=== PATIENT | female | born 1985 | race Caucasian/White ===

== ENCOUNTER 2017-03-05 13:41 | Inpatient (IN) | payer MEDICAID, OTHER ==
[~2017-03-05] VITALS: Ht 167.6 cm; Wt 103.6 kg
[~2017-03-05 13:41] MED LIST: ACET-2116 PO; IBUP-1547 PO
[2017-03-05] MEDS ORDERED: QUEtiapine FUMARATE 100 MG TABLET PO PRN (17:00)
[2017-03-05] MEDS ORDERED: ACET-2247 PO (17:06)
[2017-03-05 18:20] VITALS: BP 136/77
[2017-03-05] MEDS ORDERED: PNEUMOCOCCAL VACCINE POLYVALENT 0.5 ML VIAL [PPSV23] IM ONE (19:15)
[2017-03-05] MEDS: LORazepam 2 MG TABLET PO PRN (19:45)
[2017-03-05] MEDS ORDERED: ACETAMINOPHEN 325 MG TABLET PO PRN (23:00)
[2017-03-06] VITALS: BP 134/78
[2017-03-06] MEDS: ZOLPIDEM TARTRATE 10 MG TABLET PO PRN ×2 (00:05→21:25)
[2017-03-06] MEDS: LORazepam 2 MG TABLET PO PRN ×3 (00:05→21:25)
[2017-03-06 06:30] VITALS: BP 139/89
[2017-03-06] MEDS ORDERED: HydrOXYzine PAMOATE 50 MG CAPSULE PO PRN (13:30)
[2017-03-06] MEDS ORDERED: MAGNESIUM HYDROXIDE SUSPENSION 30 ML UDCUP PO PRN (13:30)
[2017-03-06] MEDS ORDERED: GuaiFENesin/D-METHORPHAN [SUGAR-FREE] 200-20MG/10 ML SYRUP UDCUP PO PRN (13:30)
[2017-03-06] MEDS ORDERED: PROMETHAZINE HCL 25 MG TABLET PO PRN (13:30)
[2017-03-06] MEDS ORDERED: MAG HYDROX/AL HYDROX/SIMETH ES 30 ML SUSPENSION UDCUP PO PRN (13:30)
[2017-03-06] MEDS ORDERED: ACETAMINOPHEN 325 MG TABLET PO PRN (13:30)
[2017-03-06] MEDS ORDERED: LOPERAMIDE HCL 2 MG CAPSULE PO PRN (13:30)
[2017-03-06] MEDS ORDERED: TUBERCULIN, PURIFIED PROTEIN DERIVATIVE 5 TU/0.1 ML SYG ID ONE (13:30)
[2017-03-06 16:07] VITALS: BP 130/75
[2017-03-06] MEDS: LITHIUM CARBONATE 300 MG ER TABLET PO SCH (16:43)
[2017-03-06] MEDS: THIAMINE HCL 100 MG TABLET PO SCH (16:43)
[2017-03-07 06:59] VITALS: BP 122/77
[2017-03-07] MEDS: FOLIC ACID 1 MG TABLET PO SCH (08:13)
[2017-03-07] MEDS: THIAMINE HCL 100 MG TABLET PO SCH ×2 (08:13→16:30)
[2017-03-07] MEDS: MULTIVITAMINS WITH MINERALS, THERAPEUTIC TABLET PO SCH (08:13)
[2017-03-07] MEDS: LITHIUM CARBONATE 300 MG ER TABLET PO SCH ×2 (08:14→16:30)
[2017-03-07] MEDS ORDERED: ARIPiprazole 2 MG TABLET PO SCH (09:00)
[2017-03-07] MEDS: LORazepam 2 MG TABLET PO PRN ×3 (10:05→20:47)
[2017-03-07 14:11] VITALS: BP 112/66
[2017-03-07] MEDS: TraMADol HCL 50 MG TABLET PO PRN ×2 (14:11→20:47)
[2017-03-07 16:00] VITALS: BP 123/74
[2017-03-07] MEDS ORDERED: ARIP2 PO (16:51)
[2017-03-07] MEDS ORDERED: LITH300CRT PO (16:51)
[2017-03-07] MEDS: ZOLPIDEM TARTRATE 10 MG TABLET PO PRN (21:53)
[2017-03-08 02:45] VITALS: BP 117/75
[2017-03-08] MEDS: TraMADol HCL 50 MG TABLET PO PRN (02:49)
[2017-03-08] MEDS: LORazepam 2 MG TABLET PO PRN (05:49)
[2017-03-08 08:18] VITALS: BP 112/65
[2017-03-08] MEDS: LITHIUM CARBONATE 300 MG ER TABLET PO SCH (08:47)
[2017-03-08] MEDS: THIAMINE HCL 100 MG TABLET PO SCH (08:47)
[2017-03-08] MEDS: MULTIVITAMINS WITH MINERALS, THERAPEUTIC TABLET PO SCH (08:47)
[2017-03-08] MEDS: FOLIC ACID 1 MG TABLET PO SCH (08:47)
[2017-03-08] MEDS ORDERED: ARIPiprazole 5 MG TABLET PO SCH (09:00)
[2017-03-08] MEDS ORDERED: ARIP5TAB9 PO ×2 (10:06→10:08)
[2017-03-08] MEDS ORDERED: LITH300CRT PO (10:06)
== END 2017-03-08 12:57 | disposition home or self-care (01) | DRG 750 ==
LOC: EEVIPCON 13:42 → EMS 13:42 → B3A 16:56
PROVIDERS: ADMIT Psychiatry & Neurology Psychiatry; ATTEND Psychiatry & Neurology Psychiatry
PROC: GZHZZZZ Group Psychotherapy (ICD-10-PCS; principal; 2017-03-05)
PROC: 3E0234Z Introduction of Serum, Toxoid and Vaccine into Muscle, Percutaneous Approach (ICD-10-PCS; 2017-03-05)
PROC: GZ51ZZZ Individual Psychotherapy, Behavioral (ICD-10-PCS; 2017-03-05)
DX: F25.0 Schizoaffective disorder, bipolar type (principal); R45.851 Suicidal ideations; Z78.1 Physical restraint status; E66.9 Obesity, unspecified; J45.909 Unspecified asthma, uncomplicated; Z68.36 Body mass index [BMI] 36.0-36.9, adult; Z98.84 Bariatric surgery status; Z90.49 Acquired absence of other specified parts of digestive tract; Z79.1 Long term (current) use of non-steroidal anti-inflammatories (NSAID); Z91.19 Patient's noncompliance with other medical treatment and regimen; Z79.899 Other long term (current) drug therapy; Z91.010 Allergy to peanuts; Z81.8 Family history of other mental and behavioral disorders; Z28.21 Immunization not carried out because of patient refusal
CPT/HCPCS: 99285

== ENCOUNTER 2017-06-26 17:18 | Emergency (ER) | payer MEDICAID, OTHER ==
[~2017-06-26] VITALS: Ht 170.2 cm; Wt 111.4 kg
[~2017-06-26 17:18] MED LIST changes: -ACET-2116 PO; +ARIP2 PO; +ARIP5TAB9 PO; -IBUP-1547 PO; +LITH300CRT PO
[2017-06-26] MEDS ORDERED: ARIP400S3 IM (17:34)
[2017-06-26] MEDS ORDERED: LITH600 PO (17:34)
[2017-06-26 18:08] LABS: BASOPHILS % (AUTO) 0.5 % (0.0-2.0); HEMATOCRIT 34.6 % (36-46); HEMOGLOBIN 11.4 g/dL (12.0-16.0); LYMPHOCYTES # (AUTO) 1.8 K/uL (1.0-4.8); LYMPHOCYTES % (AUTO) 25.2 % (22.0-44.0); MEAN CORPUSCULAR HEMOGLOBIN 25.8 pg (26.0-34.0); MEAN CORPUSCULAR HGB CONC 32.9 G/dL (31.0-37.0); MEAN CORPUSCULAR VOLUME 78 fL (80-100); MONOCYTES # (AUTO) 0.5 K/uL (0.1-1.0); MONOCYTES % (AUTO) 7.1 % (2.0-9.0); NEUTROPHILS # (AUTO) 4.7 K/uL (1.8-7.7); NEUTROPHILS % (AUTO) 65.2 % (40.0-70.0); PLATELET COUNT (AUTO) 281 K/uL (150-450); RED BLOOD CELL COUNT(AUTO) 4.41 MIL/uL (4.00-5.20); RED CELL DISTRIBUTION WIDTH 17.2 % (11.5-14.5); WHITE BLOOD COUNT (AUTO) 7.2 K/uL (4.5-11.0)
[2017-06-26 18:26] LABS: LITHIUM 0.61 mmol/L (0.60-1.20)
[2017-06-26 18:29] LABS: ANION GAP 8 mmol/L (8-16); CALCIUM, TOTAL 9.3 mg/dL (8.8-10.5); CARBON DIOXIDE 27 mmol/L (22-29); CHLORIDE 105 mmol/L (98-107); CREATININE 0.67 mg/dL (0.60-1.30); GLOMERULAR FILTR. RATE CALC > 60 mL/min (>60); POTASSIUM 4.1 mmol/L (3.5-5.1); SODIUM SERUM 140 mmol/L (136-145); UREA NITROGEN, BLOOD 10 mg/dL (7-18)
[2017-06-26 18:32] LABS: ALANINE AMINOTRANSFERASE 33 U/L (12-78); ALBUMIN 3.5 g/dL (3.4-5.0); ASPARTATE AMINOTRANSFERASE 22 U/L (15-37); BILIRUBIN,TOTAL 0.4 mg/dL (0.1-1.0); TOTAL PROTEIN, SERUM 7.6 g/dL (6.4-8.2)
[2017-06-26 18:50] LABS: RBC MORPHOLOGY COMMENT ABNORMAL RBC MORPH
[2017-06-26 20:57] VITALS: BP 118/71
[2017-06-26] MEDS ORDERED: LORazepam 2 MG TABLET PO ONE (21:00)
== END 2017-06-26 21:06 | disposition home or self-care (01) ==
LOC: EMS 17:19
DX: S61.512A Laceration without foreign body of left wrist, initial encounter (principal); S61.511A Laceration without foreign body of right wrist, initial encounter; J45.909 Unspecified asthma, uncomplicated; Z91.010 Allergy to peanuts; X78.8XXA Intentional self-harm by other sharp object, initial encounter; Y93.89 Activity, other specified; Y92.89 Other specified places as the place of occurrence of the external cause; Y99.8 Other external cause status
CPT/HCPCS: 36415; 80053; 80178; 80307; 84703; 85025; 99285; G0480

== ENCOUNTER 2017-06-27 18:06 | Inpatient (IN) | payer MEDICAID, OTHER ==
[~2017-06-27] VITALS: Ht 170.2 cm; Wt 111.1 kg
[~2017-06-27 18:06] MED LIST changes: -ARIP2 PO; +ARIP400S3 IM; -ARIP5TAB9 PO; -LITH300CRT PO; +LITH600 PO
[2017-06-27] MEDS ORDERED: LORazepam 2 MG TABLET PO ONE (19:30)
[2017-06-27 20:38] VITALS: BP 113/68
[2017-06-27 21:57] LABS: ALANINE AMINOTRANSFERASE 32 U/L (12-78); ALBUMIN 3.2 g/dL (3.4-5.0); ANION GAP 13 mmol/L (8-16); ASPARTATE AMINOTRANSFERASE 20 U/L (15-37); BILIRUBIN,TOTAL 0.3 mg/dL (0.1-1.0); CALCIUM, TOTAL 8.9 mg/dL (8.8-10.5); CARBON DIOXIDE 23 mmol/L (22-29); CHLORIDE 105 mmol/L (98-107); CHOL/HDL RATIO 3.2 (3.9-5.7); CREATININE 0.84 mg/dL (0.60-1.30); GLOMERULAR FILTR. RATE CALC > 60 mL/min (>60); POTASSIUM 3.7 mmol/L (3.5-5.1); SODIUM SERUM 141 mmol/L (136-145); TOTAL PROTEIN, SERUM 6.8 g/dL (6.4-8.2); UREA NITROGEN, BLOOD 10 mg/dL (7-18)
[2017-06-27 22:09] LABS: LITHIUM 0.54 mmol/L (0.60-1.20)
[2017-06-28 00:01] VITALS: BP 105/60
[2017-06-28] MEDS: ZOLPIDEM TARTRATE 10 MG TABLET PO PRN (00:01)
[2017-06-28] MEDS: LORazepam 2 MG TABLET PO PRN ×3 (06:12→21:02)
[2017-06-28 08:22] VITALS: BP 106/69
[2017-06-28] MEDS ORDERED: ONDANSETRON HCL 4 MG TABLET PO PRN (09:00)
[2017-06-28] MEDS ORDERED: LOPERAMIDE HCL 2 MG CAPSULE PO PRN (09:00)
[2017-06-28] MEDS ORDERED: BACITRACIN 28.4 GM OINTMENT TP PRN (09:00)
[2017-06-28] MEDS ORDERED: MAGNESIUM HYDROXIDE SUSPENSION 30 ML UDCUP PO PRN (09:00)
[2017-06-28] MEDS ORDERED: ACETAMINOPHEN 325 MG TABLET PO PRN (09:00)
[2017-06-28] MEDS ORDERED: CloNIDine HCL 0.1 MG TABLET PO PRN (09:00)
[2017-06-28] MEDS ORDERED: ALBUTEROL SULFATE HFA 90 MCG/PUFF 8 GM INHALER IH PRN (09:00)
[2017-06-28] MEDS ORDERED: MAG HYDROX/AL HYDROX/SIMETH ES 30 ML SUSPENSION UDCUP PO PRN (09:00)
[2017-06-28] MEDS ORDERED: PETROLATUM,WHITE 71 GM JELLY TP PRN (09:00)
[2017-06-28] MEDS ORDERED: IBUPROFEN 600 MG TABLET PO PRN (09:00)
[2017-06-28] MEDS: HALOPERIDOL 5 MG TABLET PO PRN (10:45)
[2017-06-28] MEDS ORDERED: PNEUMOCOCCAL VACCINE POLYVALENT 0.5 ML VIAL [PPSV23] IM ONE (12:00)
[2017-06-28 16:29] VITALS: BP 101/59
[2017-06-28] MEDS: LITHIUM CARBONATE 300 MG ER TABLET PO SCH (18:12)
[2017-06-28 21:02] VITALS: BP 112/69
[2017-06-29 07:02] LABS: HEMOGLOBIN A1C 5.3 % (4.5-6.2)
[2017-06-29 08:43] VITALS: BP 105/56
[2017-06-29] MEDS: LITHIUM CARBONATE 300 MG ER TABLET PO SCH ×2 (09:12→17:08)
[2017-06-29] MEDS: ARIPiprazole 5 MG TABLET PO SCH (09:12)
[2017-06-29] MEDS: LORazepam 2 MG TABLET PO PRN ×2 (12:34→21:45)
[2017-06-29] MEDS: HALOPERIDOL 5 MG TABLET PO PRN (12:34)
[2017-06-29] MEDS ORDERED: SERT50TA12 PO (15:18)
[2017-06-29] MEDS ORDERED: PRAZ2 PO (15:18)
[2017-06-29] MEDS ORDERED: BENZ1TAB10 PO (15:18)
[2017-06-29 16:00] VITALS: BP 102/61
[2017-06-30] MEDS: ZOLPIDEM TARTRATE 10 MG TABLET PO PRN ×2 (02:34→20:02)
[2017-06-30 08:27] VITALS: BP 118/71
[2017-06-30] MEDS: LITHIUM CARBONATE 300 MG ER TABLET PO SCH ×2 (10:10→17:39)
[2017-06-30] MEDS: ARIPiprazole 5 MG TABLET PO SCH (10:10)
[2017-06-30] MEDS: SERTRALINE HCL 50 MG TABLET PO SCH (10:10)
[2017-06-30] MEDS: LEVOTHYROXINE SODIUM 100 MCG TABLET PO SCH (11:56)
[2017-06-30] MEDS: LORazepam 2 MG TABLET PO PRN (14:19)
[2017-06-30] MEDS: HALOPERIDOL 5 MG TABLET PO PRN (16:08)
[2017-06-30 16:55] VITALS: BP 105/60
[2017-07-01 02:45] VITALS: BP 101/64
[2017-07-01] MEDS: LEVOTHYROXINE SODIUM 100 MCG TABLET PO SCH (06:49)
[2017-07-01] MEDS: ARIPiprazole 5 MG TABLET PO SCH (08:21)
[2017-07-01] MEDS: SERTRALINE HCL 50 MG TABLET PO SCH (08:21)
[2017-07-01] MEDS: LITHIUM CARBONATE 300 MG ER TABLET PO SCH (08:22)
[2017-07-01] MEDS ORDERED: CYANOCOBALAMIN 1,000 MCG/ML VIAL IM SCH (09:00)
[2017-07-01] MEDS ORDERED: CYANOCOBALAMIN 500 MCG TABLET PO SCH (09:00)
[2017-07-01] MEDS ORDERED: LEVO100 PO (09:16)
[2017-07-01] MEDS ORDERED: CYAN100010 PO (09:16)
[2017-07-01] MEDS ORDERED: ARIP5TAB9 PO (09:17)
[2017-07-01 09:30] VITALS: BP 116/66
== END 2017-07-01 10:30 | disposition home or self-care (01) | DRG 750 ==
LOC: EMS 18:07 → 3EI 19:36 → 3EC 20:11
PROVIDERS: ADMIT Psychiatry & Neurology Psychiatry; ATTEND Psychiatry & Neurology Psychiatry
PROC: 3E0234Z Introduction of Serum, Toxoid and Vaccine into Muscle, Percutaneous Approach (ICD-10-PCS; principal; 2017-06-28)
DX: F25.9 Schizoaffective disorder, unspecified (principal); R45.851 Suicidal ideations; E03.9 Hypothyroidism, unspecified; E66.9 Obesity, unspecified; F41.9 Anxiety disorder, unspecified; J45.909 Unspecified asthma, uncomplicated; G47.00 Insomnia, unspecified; R73.9 Hyperglycemia, unspecified; Z90.49 Acquired absence of other specified parts of digestive tract; Z98.84 Bariatric surgery status; Z72.89 Other problems related to lifestyle; Z71.41 Alcohol abuse counseling and surveillance of alcoholic; Z91.010 Allergy to peanuts; Z23 Encounter for immunization; Z68.38 Body mass index [BMI] 38.0-38.9, adult
CPT/HCPCS: 80307; 82306; 83036; 83540; 83550; 84443; 90471; 99285; G0480; J3420

== ENCOUNTER 2017-11-23 15:57 | Inpatient (IN) | payer MEDICAID ==
[~2017-11-23] VITALS: Ht 167.6 cm; Wt 117.4 kg
[~2017-11-23 15:57] MED LIST changes: -ARIP400S3 IM; +ARIP5TAB8 PO; +CYAN100010 PO; +LEVO100 PO; +SERT50TA12 PO
[2017-11-23 16:18] VITALS: BP 112/67
[2017-11-23] MEDS ORDERED: ARIP400S3 IM (16:55)
[2017-11-23] MEDS ORDERED: PRAZ2 PO (16:57)
[2017-11-23] MEDS ORDERED: LITH300C3 PO (16:57)
[2017-11-23] MEDS ORDERED: SERT50TA12 PO (16:57)
[2017-11-23] MEDS ORDERED: BENZ1TAB10 PO (16:57)
[2017-11-23 17:09] VITALS: BP 111/73
[2017-11-23] MEDS: HALOPERIDOL 5 MG TABLET PO PRN (22:29)
[2017-11-24 07:42] LABS: BASOPHILS % (AUTO) 0.5 % (0.0-2.0); EOSINOPHILS % (AUTO) 2.7 % (1.0-6.0); HEMATOCRIT 30.8 % (36-46); HEMOGLOBIN 10.1 g/dL (12.0-16.0); LYMPHOCYTES # (AUTO) 2.5 K/uL (1.0-4.8); LYMPHOCYTES % (AUTO) 34.1 % (22.0-44.0); MEAN CORPUSCULAR HEMOGLOBIN 24.8 pg (26.0-34.0); MEAN CORPUSCULAR HGB CONC 32.6 G/dL (31.0-37.0); MEAN CORPUSCULAR VOLUME 76 fL (80-100); MONOCYTES # (AUTO) 0.6 K/uL (0.1-1.0); MONOCYTES % (AUTO) 8.3 % (2.0-9.0); NEUTROPHILS % (AUTO) 54.4 % (40.0-70.0); PLATELET COUNT (AUTO) 318 K/uL (150-450); RED BLOOD CELL COUNT(AUTO) 4.05 MIL/uL (4.00-5.20); RED CELL DISTRIBUTION WIDTH 13.7 % (11.5-14.5)
[2017-11-24] MEDS ORDERED: CloNIDine HCL 0.1 MG TABLET PO PRN (08:00)
[2017-11-24] MEDS ORDERED: PETROLATUM,WHITE 71 GM JELLY TP PRN (08:00)
[2017-11-24] MEDS ORDERED: ONDANSETRON HCL 4 MG TABLET PO PRN (08:00)
[2017-11-24] MEDS ORDERED: MAG HYDROX/AL HYDROX/SIMETH ES 30 ML SUSPENSION UDCUP PO PRN (08:00)
[2017-11-24] MEDS ORDERED: ACETAMINOPHEN 325 MG TABLET PO PRN (08:00)
[2017-11-24] MEDS ORDERED: ALBUTEROL SULFATE HFA 90 MCG/PUFF 8 GM INHALER IH PRN (08:00)
[2017-11-24] MEDS ORDERED: IBUPROFEN 600 MG TABLET PO PRN (08:00)
[2017-11-24] MEDS ORDERED: LOPERAMIDE HCL 2 MG CAPSULE PO PRN (08:00)
[2017-11-24] MEDS ORDERED: BACITRACIN 28.4 GM OINTMENT TP PRN (08:00)
[2017-11-24] MEDS ORDERED: MAGNESIUM HYDROXIDE SUSPENSION 30 ML UDCUP PO PRN (08:00)
[2017-11-24 08:02] LABS: HEMOGLOBIN A1C 5.9 % (4.5-6.2)
[2017-11-24 08:17] LABS: ALANINE AMINOTRANSFERASE 36 U/L (12-78); ALBUMIN 3.2 g/dL (3.4-5.0); ALKALINE PHOSPHATASE 92 U/L (46-116); ANION GAP 10 mmol/L (8-16); ASPARTATE AMINOTRANSFERASE 19 U/L (15-37); BILIRUBIN,TOTAL 0.6 mg/dL (0.1-1.0); CALCIUM, TOTAL 8.5 mg/dL (8.8-10.5); CARBON DIOXIDE 25 mmol/L (22-29); CHLORIDE 103 mmol/L (98-107); CHOL/HDL RATIO 2.9 (3.9-5.7); CHOLESTEROL 141 mg/dL (131-200); CREATININE 0.69 mg/dL (0.60-1.30); GLOMERULAR FILTR. RATE CALC > 60 mL/min (>60); GLUCOSE,RANDOM 85 mg/dL (70-110); HCG,QUANTITATIVE < 1 mIU/mL (0-6); HDL CHOLESTEROL 49 mg/dL (40-60); LDL CHOL (CALC.) 68 mg/dL (0-130); SODIUM SERUM 138 mmol/L (136-145); THYROID STIMULATING HORMONE 23.41 uIU/mL (0.36-3.74); TOTAL PROTEIN, SERUM 6.6 g/dL (6.4-8.2); TRIGLYCERIDES 122 mg/dL (15-150); UREA NITROGEN, BLOOD 10 mg/dL (7-18)
[2017-11-24 09:12] LABS: PLATELET MORPHOLOGY COMMENT NORMAL
[2017-11-24] MEDS ORDERED: LEVOTHYROXINE SODIUM 50 MCG TABLET PO SCH (10:00)
[2017-11-24] MEDS ORDERED: FLUTICASONE PROPIONATE 50 MCG/SPRAY 16 GM NASAL SPRAY NASAL PRN (10:45)
[2017-11-24 16:45] VITALS: BP 107/61
[2017-11-24] MEDS: LORazepam 2 MG TABLET PO PRN ×2 (16:46→22:52)
[2017-11-24] MEDS: FERROUS SULFATE 325 MG EC TABLET PO SCH (16:52)
[2017-11-24] MEDS: HALOPERIDOL 5 MG TABLET PO PRN (18:06)
[2017-11-24] MEDS: LITHIUM CARBONATE 600 MG CAPSULE PO SCH (20:31)
[2017-11-24] MEDS: BENZTROPINE MESYLATE 1 MG TABLET PO SCH (20:31)
[2017-11-24] MEDS: SERTRALINE HCL 100 MG TABLET PO SCH (20:31)
[2017-11-24] MEDS: ZOLPIDEM TARTRATE 10 MG TABLET PO PRN (21:03)
[2017-11-25 04:32] VITALS: BP 137/72
[2017-11-25] MEDS: LORazepam 2 MG TABLET PO PRN (04:35)
[2017-11-25] MEDS: HALOPERIDOL 5 MG TABLET PO PRN (04:35)
[2017-11-25] MEDS: LEVOTHYROXINE SODIUM 100 MCG TABLET PO SCH (06:11)
[2017-11-25] MEDS: FERROUS SULFATE 325 MG EC TABLET PO SCH ×2 (06:36→16:35)
[2017-11-25 08:45] VITALS: BP 106/60
[2017-11-25 16:37] VITALS: BP 102/60
[2017-11-25] MEDS: SERTRALINE HCL 100 MG TABLET PO SCH (20:05)
[2017-11-25] MEDS: LITHIUM CARBONATE 600 MG CAPSULE PO SCH (20:06)
[2017-11-25] MEDS: BENZTROPINE MESYLATE 1 MG TABLET PO SCH (20:06)
[2017-11-25] MEDS: ZOLPIDEM TARTRATE 10 MG TABLET PO PRN (21:04)
[2017-11-26] MEDS: LEVOTHYROXINE SODIUM 100 MCG TABLET PO SCH (06:40)
[2017-11-26] MEDS: FERROUS SULFATE 325 MG EC TABLET PO SCH ×2 (06:40→16:53)
[2017-11-26] MEDS: LORazepam 2 MG TABLET PO PRN ×2 (12:08→20:56)
[2017-11-26 16:21] VITALS: BP 105/65
[2017-11-26] MEDS: LITHIUM CARBONATE 600 MG CAPSULE PO SCH (20:35)
[2017-11-26] MEDS: SERTRALINE HCL 100 MG TABLET PO SCH (20:35)
[2017-11-26] MEDS: BENZTROPINE MESYLATE 1 MG TABLET PO SCH (20:35)
[2017-11-27 01:03] VITALS: BP 128/63
[2017-11-27] MEDS: ZOLPIDEM TARTRATE 10 MG TABLET PO PRN (01:04)
[2017-11-27] MEDS: LEVOTHYROXINE SODIUM 100 MCG TABLET PO SCH (06:31)
[2017-11-27] MEDS: FERROUS SULFATE 325 MG EC TABLET PO SCH ×2 (06:31→16:19)
[2017-11-27 08:26] VITALS: BP 103/54
[2017-11-27 16:42] VITALS: BP 105/67
[2017-11-27] MEDS: LORazepam 2 MG TABLET PO PRN (20:32)
[2017-11-27] MEDS: HALOPERIDOL 5 MG TABLET PO PRN (20:32)
[2017-11-27] MEDS: LITHIUM CARBONATE 600 MG CAPSULE PO SCH (21:16)
[2017-11-27] MEDS: BENZTROPINE MESYLATE 1 MG TABLET PO SCH (21:16)
[2017-11-27] MEDS: SERTRALINE HCL 100 MG TABLET PO SCH (21:16)
[2017-11-28] MEDS: LEVOTHYROXINE SODIUM 100 MCG TABLET PO SCH (06:29)
[2017-11-28] MEDS: FERROUS SULFATE 325 MG EC TABLET PO SCH (06:29)
[2017-11-28 07:20] VITALS: BP 112/68
[2017-11-28 09:00] VITALS: BP 108/66
[2017-11-28] MEDS ORDERED: FERR-89 PO (15:28)
[2017-11-28] MEDS ORDERED: LEVO50TA11 PO (15:28)
== END 2017-11-28 16:15 | disposition home or self-care (01) | DRG 750 ==
LOC: B3A 16:24
PROVIDERS: ADMIT Psychiatry & Neurology Psychiatry; ATTEND Psychiatry & Neurology Psychiatry
DX: F25.1 Schizoaffective disorder, depressive type (principal); R45.851 Suicidal ideations; Z68.41 Body mass index [BMI] 40.0-44.9, adult; E66.01 Morbid (severe) obesity due to excess calories; E03.9 Hypothyroidism, unspecified; D50.9 Iron deficiency anemia, unspecified; F23 Brief psychotic disorder; F25.9 Schizoaffective disorder, unspecified; F41.9 Anxiety disorder, unspecified; G47.00 Insomnia, unspecified; J30.9 Allergic rhinitis, unspecified; K59.00 Constipation, unspecified; Z98.84 Bariatric surgery status; Z90.49 Acquired absence of other specified parts of digestive tract; Z91.010 Allergy to peanuts
CPT/HCPCS: 83036; 84439; 84443; 87081

== ENCOUNTER 2017-11-30 15:33 | Inpatient (IN) | payer MEDICAID, OTHER ==
[~2017-11-30] VITALS: Ht 170.2 cm; Wt 117.8 kg
[~2017-11-30 15:33] MED LIST changes: -ARIP5TAB8 PO; +BENZ1TAB10 PO; -CYAN100010 PO; +FERR-89 PO; -LEVO100 PO; +LEVO50TA11 PO; +LITH300C3 PO; -LITH600 PO
[2017-11-30] MEDS ORDERED: PRAZ1 PO (15:46)
[2017-11-30] MEDS ORDERED: ARIP2 PO (15:46)
[2017-11-30 16:57] LABS: ANION GAP 6 mmol/L (8-16); CALCIUM, TOTAL 8.8 mg/dL (8.8-10.5); CARBON DIOXIDE 27 mmol/L (22-29); CHLORIDE 103 mmol/L (98-107); CREATININE 0.62 mg/dL (0.60-1.30); GLOMERULAR FILTR. RATE CALC > 60 mL/min (>60); GLUCOSE,RANDOM 102 mg/dL (70-110); POTASSIUM 3.7 mmol/L (3.5-5.1); SODIUM SERUM 136 mmol/L (136-145); UREA NITROGEN, BLOOD 8 mg/dL (7-18)
[2017-11-30 17:02] LABS: ALANINE AMINOTRANSFERASE 45 U/L (12-78); ALBUMIN 3.5 g/dL (3.4-5.0); ALKALINE PHOSPHATASE 89 U/L (46-116); ASPARTATE AMINOTRANSFERASE 34 U/L (15-37); BILIRUBIN,TOTAL 0.5 mg/dL (0.1-1.0); TOTAL PROTEIN, SERUM 7.4 g/dL (6.4-8.2)
[2017-11-30 17:23] LABS: BASOPHILS % (AUTO) 0.6 % (0.0-2.0); EOSINOPHILS % (AUTO) 1.6 % (1.0-6.0); HEMATOCRIT 32.7 % (36-46); HEMOGLOBIN 10.7 g/dL (12.0-16.0); LYMPHOCYTES # (AUTO) 1.6 K/uL (1.0-4.8); LYMPHOCYTES % (AUTO) 20.9 % (22.0-44.0); MEAN CORPUSCULAR HEMOGLOBIN 25.2 pg (26.0-34.0); MEAN CORPUSCULAR HGB CONC 32.6 G/dL (31.0-37.0); MEAN CORPUSCULAR VOLUME 77 fL (80-100); MONOCYTES # (AUTO) 0.5 K/uL (0.1-1.0); MONOCYTES % (AUTO) 6.5 % (2.0-9.0); NEUTROPHILS # (AUTO) 5.2 K/uL (1.8-7.7); NEUTROPHILS % (AUTO) 70.4 % (40.0-70.0); PLATELET COUNT (AUTO) 290 K/uL (150-450); RED BLOOD CELL COUNT(AUTO) 4.24 MIL/uL (4.00-5.20); RED CELL DISTRIBUTION WIDTH 14.1 % (11.5-14.5)
[2017-11-30 19:24] LABS: AMPHET/METH SCREEN,URINE NEGATIVE (NEGATIVE); BARBITURATE SCREEN, URINE NEGATIVE (NEGATIVE); BENZODIAZEPINES SCREEN,URINE NEGATIVE (NEGATIVE); CANNABINOID SCREEN,URINE NEGATIVE (NEGATIVE); COCAINE SCREEN,URINE NEGATIVE (NEGATIVE); METHADONE SCREEN, URINE NEGATIVE (NEGATIVE); OPIATE SCREEN,URINE NEGATIVE (NEGATIVE)
[2017-11-30 19:29] LABS: PHENCYCLIDINE SCREEN,URINE NEGATIVE (NEGATIVE)
[2017-11-30] MEDS ORDERED: LITH600 PO (19:47)
[2017-11-30] MEDS ORDERED: LEVO100 PO (19:47)
[2017-11-30] MEDS ORDERED: SERT100T12 PO (19:47)
[2017-11-30] MEDS: LORazepam 2 MG TABLET PO PRN (19:58)
[2017-11-30] MEDS: HALOPERIDOL 5 MG TABLET PO PRN (19:58)
[2017-11-30] MEDS ORDERED: SERTRALINE HCL 100 MG TABLET PO SCH (21:00)
[2017-12-01 00:08] VITALS: BP 104/66
[2017-12-01] MEDS ORDERED: ALBUTEROL SULFATE HFA 90 MCG/PUFF 8 GM INHALER IH PRN (07:00)
[2017-12-01] MEDS ORDERED: ACETAMINOPHEN 325 MG TABLET PO PRN (07:00)
[2017-12-01] MEDS ORDERED: ONDANSETRON HCL 4 MG TABLET PO PRN (07:00)
[2017-12-01] MEDS ORDERED: MAG HYDROX/AL HYDROX/SIMETH ES 30 ML SUSPENSION UDCUP PO PRN (07:00)
[2017-12-01] MEDS ORDERED: BACITRACIN 28.4 GM OINTMENT TP PRN (07:00)
[2017-12-01] MEDS ORDERED: IBUPROFEN 600 MG TABLET PO PRN (07:00)
[2017-12-01] MEDS ORDERED: MAGNESIUM HYDROXIDE SUSPENSION 30 ML UDCUP PO PRN (07:00)
[2017-12-01] MEDS ORDERED: BENZOCAINE/MENTHOL LOZENGE [8 LOZENGES/PACKET] MM PRN (07:00)
[2017-12-01] MEDS ORDERED: PETROLATUM,WHITE 71 GM JELLY TP PRN (07:00)
[2017-12-01] MEDS ORDERED: CloNIDine HCL 0.1 MG TABLET PO PRN (07:00)
[2017-12-01] MEDS: LEVOTHYROXINE SODIUM 100 MCG TABLET PO SCH (07:10)
[2017-12-01] MEDS: FERROUS SULFATE 325 MG EC TABLET PO SCH ×2 (07:11→17:17)
[2017-12-01 10:18] VITALS: BP 100/65
[2017-12-01] MEDS: HALOPERIDOL 5 MG TABLET PO PRN (16:33)
[2017-12-01] MEDS: LORazepam 2 MG TABLET PO PRN (16:33)
[2017-12-01 17:59] VITALS: BP 113/73
[2017-12-01] MEDS: BENZTROPINE MESYLATE 1 MG TABLET PO SCH (21:12)
[2017-12-01] MEDS: SERTRALINE HCL 100 MG TABLET PO SCH (21:13)
[2017-12-01] MEDS: LITHIUM CARBONATE 600 MG CAPSULE PO SCH (21:13)
[2017-12-02 03:30] VITALS: BP 106/68
[2017-12-02] MEDS: LORazepam 2 MG TABLET PO PRN ×2 (03:34→17:55)
[2017-12-02] MEDS: LEVOTHYROXINE SODIUM 100 MCG TABLET PO SCH (06:53)
[2017-12-02] MEDS: FERROUS SULFATE 325 MG EC TABLET PO SCH ×2 (06:53→17:07)
[2017-12-02 08:15] VITALS: BP 112/63
[2017-12-02 16:25] VITALS: BP 105/77
[2017-12-02] MEDS: SERTRALINE HCL 100 MG TABLET PO SCH (20:10)
[2017-12-02] MEDS: LITHIUM CARBONATE 600 MG CAPSULE PO SCH (20:13)
[2017-12-02] MEDS: BENZTROPINE MESYLATE 1 MG TABLET PO SCH (20:13)
[2017-12-03] MEDS: FERROUS SULFATE 325 MG EC TABLET PO SCH ×2 (06:52→17:04)
[2017-12-03] MEDS: LEVOTHYROXINE SODIUM 100 MCG TABLET PO SCH (06:52)
[2017-12-03 08:00] VITALS: BP 107/57
[2017-12-03] MEDS: LORazepam 2 MG TABLET PO PRN (14:38)
[2017-12-03 17:20] VITALS: BP 115/71
[2017-12-03] MEDS: BENZTROPINE MESYLATE 1 MG TABLET PO SCH (20:38)
[2017-12-03] MEDS: LITHIUM CARBONATE 600 MG CAPSULE PO SCH (20:39)
[2017-12-03] MEDS: ZOLPIDEM TARTRATE 10 MG TABLET PO PRN (20:39)
[2017-12-03] MEDS: SERTRALINE HCL 100 MG TABLET PO SCH (20:39)
[2017-12-03] MEDS: PRAZOSIN HCL 1 MG CAPSULE PO SCH (20:39)
[2017-12-03] MEDS: LOPERAMIDE HCL 2 MG CAPSULE PO PRN (21:40)
[2017-12-04] MEDS: FERROUS SULFATE 325 MG EC TABLET PO SCH ×2 (06:51→16:47)
[2017-12-04] MEDS: LEVOTHYROXINE SODIUM 100 MCG TABLET PO SCH (06:51)
[2017-12-04 12:01] VITALS: BP 127/66
[2017-12-04 17:14] VITALS: BP 108/74
[2017-12-04] MEDS: BENZTROPINE MESYLATE 1 MG TABLET PO SCH (20:56)
[2017-12-04] MEDS: LITHIUM CARBONATE 600 MG CAPSULE PO SCH (20:56)
[2017-12-04] MEDS: PRAZOSIN HCL 1 MG CAPSULE PO SCH (21:01)
[2017-12-04] MEDS: SERTRALINE HCL 100 MG TABLET PO SCH (21:01)
[2017-12-05] MEDS: ZOLPIDEM TARTRATE 10 MG TABLET PO PRN (02:07)
[2017-12-05 02:08] VITALS: BP 116/67
[2017-12-05] MEDS: LEVOTHYROXINE SODIUM 100 MCG TABLET PO SCH (06:51)
[2017-12-05] MEDS: FERROUS SULFATE 325 MG EC TABLET PO SCH ×2 (06:51→16:49)
[2017-12-05] MEDS ORDERED: FERR-89 PO (10:10)
[2017-12-05 11:00] VITALS: BP 104/64
[2017-12-05] MEDS: HALOPERIDOL 5 MG TABLET PO PRN (16:09)
[2017-12-05] MEDS: LORazepam 2 MG TABLET PO PRN (16:10)
[2017-12-05 17:43] VITALS: BP 118/68
[2017-12-05] MEDS: BENZTROPINE MESYLATE 1 MG TABLET PO SCH (22:11)
[2017-12-05] MEDS: LITHIUM CARBONATE 600 MG CAPSULE PO SCH (22:11)
[2017-12-05] MEDS: PRAZOSIN HCL 1 MG CAPSULE PO SCH (22:11)
[2017-12-05] MEDS: SERTRALINE HCL 100 MG TABLET PO SCH (22:12)
[2017-12-05] MEDS: LOPERAMIDE HCL 2 MG CAPSULE PO PRN (23:43)
[2017-12-06 01:00] VITALS: BP 98/50
[2017-12-06] MEDS: FERROUS SULFATE 325 MG EC TABLET PO SCH (06:09)
[2017-12-06] MEDS: LEVOTHYROXINE SODIUM 100 MCG TABLET PO SCH (06:09)
[2017-12-06 08:42] VITALS: BP 124/70
== END 2017-12-06 14:45 | disposition home or self-care (01) | DRG 750 ==
LOC: EMS 15:35 → 3EI 22:22
PROVIDERS: ADMIT Psychiatry & Neurology Psychiatry; ATTEND Psychiatry & Neurology Psychiatry
DX: F25.9 Schizoaffective disorder, unspecified (principal); R45.851 Suicidal ideations; Z68.41 Body mass index [BMI] 40.0-44.9, adult; E66.01 Morbid (severe) obesity due to excess calories; E03.9 Hypothyroidism, unspecified; D50.9 Iron deficiency anemia, unspecified; F41.9 Anxiety disorder, unspecified; G47.00 Insomnia, unspecified; J45.909 Unspecified asthma, uncomplicated; K59.00 Constipation, unspecified; X58.XXXA Exposure to other specified factors, initial encounter; S61.512A Laceration without foreign body of left wrist, initial encounter; Z90.49 Acquired absence of other specified parts of digestive tract; Z98.84 Bariatric surgery status; Y93.89 Activity, other specified; Y92.89 Other specified places as the place of occurrence of the external cause; Z91.010 Allergy to peanuts; Z79.899 Other long term (current) drug therapy
CPT/HCPCS: 87081; 99285; G0480

== ENCOUNTER 2018-03-20 16:01 | Inpatient (IN) | payer MEDICAID, OTHER ==
[~2018-03-20] VITALS: Ht 170.2 cm; Wt 122.1 kg
[~2018-03-20 16:01] MED LIST changes: +LEVO100 PO; -LEVO50TA11 PO; -LITH300C3 PO; +LITH600 PO; +PRAZ1 PO; +SERT100T12 PO; -SERT50TA12 PO
[2018-03-20 17:27] LABS: BASOPHILS % (AUTO) 0.7 % (0.0-2.0); EOSINOPHILS % (AUTO) 1.6 % (1.0-6.0); HEMATOCRIT 39.5 % (36-46); HEMOGLOBIN 13.4 g/dL (12.0-16.0); LYMPHOCYTES # (AUTO) 2.2 K/uL (1.0-4.8); LYMPHOCYTES % (AUTO) 31.1 % (22.0-44.0); MEAN CORPUSCULAR HEMOGLOBIN 29.2 pg (26.0-34.0); MEAN CORPUSCULAR VOLUME 86 fL (80-100); MONOCYTES # (AUTO) 0.5 K/uL (0.1-1.0); MONOCYTES % (AUTO) 7.6 % (2.0-9.0); NEUTROPHILS # (AUTO) 4.2 K/uL (1.8-7.7); PLATELET COUNT (AUTO) 263 K/uL (150-450); RED BLOOD CELL COUNT(AUTO) 4.59 MIL/uL (4.00-5.20); RED CELL DISTRIBUTION WIDTH 14.3 % (11.5-14.5)
[2018-03-20 17:43] LABS: AMPHET/METH SCREEN,URINE NEGATIVE (NEGATIVE); BARBITURATE SCREEN, URINE NEGATIVE (NEGATIVE); BENZODIAZEPINES SCREEN,URINE NEGATIVE (NEGATIVE); CANNABINOID SCREEN,URINE NEGATIVE (NEGATIVE); COCAINE SCREEN,URINE NEGATIVE (NEGATIVE); METHADONE SCREEN, URINE NEGATIVE (NEGATIVE); OPIATE SCREEN,URINE NEGATIVE (NEGATIVE); PHENCYCLIDINE SCREEN,URINE NEGATIVE (NEGATIVE)
[2018-03-20 17:46] LABS: ANION GAP 7 mmol/L (8-16); CARBON DIOXIDE 28 mmol/L (22-29); CHLORIDE 102 mmol/L (98-107); GLOMERULAR FILTR. RATE CALC > 60 mL/min (>60); GLUCOSE,RANDOM 99 mg/dL (70-110); POTASSIUM 4.1 mmol/L (3.5-5.1); SODIUM SERUM 137 mmol/L (136-145); UREA NITROGEN, BLOOD 11 mg/dL (7-18)
[2018-03-20 17:52] LABS: ALANINE AMINOTRANSFERASE 46 U/L (12-78); ALBUMIN 3.7 g/dL (3.4-5.0); ALKALINE PHOSPHATASE 118 U/L (46-116); ASPARTATE AMINOTRANSFERASE 26 U/L (15-37); BILIRUBIN,TOTAL 0.3 mg/dL (0.1-1.0); TOTAL PROTEIN, SERUM 8.1 g/dL (6.4-8.2)
[2018-03-20 18:27] LABS: SALICYLATE 1.3 mg/dL (2.8-20.0)
[2018-03-20 18:44] LABS: ACETAMINOPHEN < 2 mcg/mL (10-30)
[2018-03-20] MEDS ORDERED: LORazepam 2 MG/ML VIAL IM ONE (20:15)
[2018-03-20] MEDS ORDERED: ZOLPIDEM TARTRATE 10 MG TABLET PO PRN (20:30)
[2018-03-21 01:57] VITALS: BP 104/70
[2018-03-21 08:05] VITALS: BP 118/64
[2018-03-21] MEDS ORDERED: BACITRACIN 28.4 GM OINTMENT TP PRN (08:15)
[2018-03-21] MEDS ORDERED: LOPERAMIDE HCL 2 MG CAPSULE PO PRN (08:15)
[2018-03-21] MEDS ORDERED: MAGNESIUM HYDROXIDE SUSPENSION 30 ML UDCUP PO PRN (08:15)
[2018-03-21] MEDS ORDERED: ONDANSETRON HCL 4 MG TABLET PO PRN (08:15)
[2018-03-21] MEDS ORDERED: CloNIDine HCL 0.1 MG TABLET PO PRN (08:15)
[2018-03-21] MEDS ORDERED: PETROLATUM,WHITE 71 GM JELLY TP PRN (08:15)
[2018-03-21] MEDS ORDERED: ALBUTEROL SULFATE HFA 90 MCG/PUFF 8 GM INHALER IH PRN (08:15)
[2018-03-21] MEDS ORDERED: ACETAMINOPHEN 325 MG TABLET PO PRN (08:15)
[2018-03-21] MEDS ORDERED: MAG HYDROX/AL HYDROX/SIMETH ES 30 ML SUSPENSION UDCUP PO PRN (08:15)
[2018-03-21] MEDS ORDERED: IBUPROFEN 600 MG TABLET PO PRN (08:15)
[2018-03-21] MEDS: HALOPERIDOL 5 MG TABLET PO PRN (16:11)
[2018-03-21] MEDS: LORazepam 2 MG TABLET PO PRN (16:12)
[2018-03-21] MEDS: LITHIUM CARBONATE 600 MG CAPSULE PO SCH (21:00)
[2018-03-21 21:20] LABS: FREE T4 (FREE THYROXINE) 0.72 ng/dL (0.76-1.46); THYROID STIMULATING HORMONE 6.81 uIU/mL (0.36-3.74)
[2018-03-21] MEDS: BENZTROPINE MESYLATE 1 MG TABLET PO SCH (21:55)
[2018-03-21] MEDS: SERTRALINE HCL 100 MG TABLET PO SCH (21:55)
[2018-03-21] MEDS: PRAZOSIN HCL 1 MG CAPSULE PO SCH (21:55)
[2018-03-21 22:53] VITALS: BP 127/79
[2018-03-22] MEDS: LEVOTHYROXINE SODIUM 100 MCG TABLET PO SCH (06:07)
[2018-03-22 06:51] VITALS: BP 120/64
[2018-03-22 09:22] VITALS: BP 109/57
[2018-03-22] MEDS: HALOPERIDOL 5 MG TABLET PO PRN (16:05)
[2018-03-22] MEDS: LORazepam 2 MG TABLET PO PRN (16:05)
[2018-03-22 17:06] VITALS: BP 120/77
[2018-03-22] MEDS: BENZTROPINE MESYLATE 1 MG TABLET PO SCH (20:59)
[2018-03-22] MEDS: LITHIUM CARBONATE 600 MG CAPSULE PO SCH (21:00)
[2018-03-22] MEDS: PRAZOSIN HCL 1 MG CAPSULE PO SCH (21:00)
[2018-03-22] MEDS: SERTRALINE HCL 100 MG TABLET PO SCH (21:01)
[2018-03-23] MEDS: LEVOTHYROXINE SODIUM 100 MCG TABLET PO SCH (06:57)
[2018-03-23 11:15] VITALS: BP 135/68
[2018-03-23] MEDS: HALOPERIDOL 5 MG TABLET PO PRN (16:20)
[2018-03-23 16:25] VITALS: BP 127/77
[2018-03-23] MEDS: PRAZOSIN HCL 1 MG CAPSULE PO SCH (20:25)
[2018-03-23] MEDS: BENZTROPINE MESYLATE 1 MG TABLET PO SCH (20:25)
[2018-03-23] MEDS: SERTRALINE HCL 100 MG TABLET PO SCH (20:25)
[2018-03-23] MEDS: LITHIUM CARBONATE 600 MG CAPSULE PO SCH (20:36)
[2018-03-24 06:00] VITALS: BP 107/62
[2018-03-24] MEDS: LEVOTHYROXINE SODIUM 100 MCG TABLET PO SCH (07:04)
[2018-03-24 09:48] VITALS: BP 105/57
== END 2018-03-24 13:35 | disposition home or self-care (01) | DRG 750 ==
LOC: EMS 16:02 → 3EI 23:25
PROVIDERS: ADMIT Psychiatry & Neurology Psychiatry; ATTEND Psychiatry & Neurology Psychiatry
DX: F25.9 Schizoaffective disorder, unspecified (principal); R45.851 Suicidal ideations; Z68.41 Body mass index [BMI] 40.0-44.9, adult; E66.01 Morbid (severe) obesity due to excess calories; E03.9 Hypothyroidism, unspecified; F41.9 Anxiety disorder, unspecified; D50.9 Iron deficiency anemia, unspecified; G47.00 Insomnia, unspecified; K59.00 Constipation, unspecified; F32.9 Major depressive disorder, single episode, unspecified; J45.909 Unspecified asthma, uncomplicated; Z71.41 Alcohol abuse counseling and surveillance of alcoholic; Z98.84 Bariatric surgery status; Z90.49 Acquired absence of other specified parts of digestive tract; Z56.0 Unemployment, unspecified; Z91.010 Allergy to peanuts; Z72.89 Other problems related to lifestyle; Z59.0 Homelessness; Z79.899 Other long term (current) drug therapy
CPT/HCPCS: 84439; 84443; 96372; 99285; G0480; G0481; J2060

== ENCOUNTER 2018-07-05 19:06 | Inpatient (IN) | payer MEDICAID, OTHER ==
[~2018-07-05] VITALS: Ht 170.2 cm; Wt 126.1 kg
[~2018-07-05 19:06] MED LIST changes: -FERR-89 PO
[2018-07-05 19:50] LABS: BASOPHILS % (AUTO) 0.7 % (0.0-2.0); EOSINOPHILS % (AUTO) 0.8 % (1.0-6.0); LYMPHOCYTES # (AUTO) 1.5 K/uL (1.0-4.8); LYMPHOCYTES % (AUTO) 21.8 % (22.0-44.0); MEAN CORPUSCULAR HEMOGLOBIN 30.4 pg (26.0-34.0); MEAN CORPUSCULAR HGB CONC 34.2 G/dL (31.0-37.0); MEAN CORPUSCULAR VOLUME 89 fL (80-100); MONOCYTES # (AUTO) 0.5 K/uL (0.1-1.0); MONOCYTES % (AUTO) 7.7 % (2.0-9.0); NEUTROPHILS # (AUTO) 4.8 K/uL (1.8-7.7); PLATELET COUNT (AUTO) 231 K/uL (150-450); RED BLOOD CELL COUNT(AUTO) 4.27 MIL/uL (4.00-5.20); RED CELL DISTRIBUTION WIDTH 12.7 % (11.5-14.5)
[2018-07-05 19:58] LABS: ANION GAP 9 mmol/L (8-16); CALCIUM, TOTAL 8.8 mg/dL (8.8-10.5); CARBON DIOXIDE 26 mmol/L (22-29); CHLORIDE 106 mmol/L (98-107); CREATININE 0.62 mg/dL (0.60-1.30); GLOMERULAR FILTR. RATE CALC > 60 mL/min (>60); GLUCOSE,RANDOM 97 mg/dL (70-110); POTASSIUM 3.5 mmol/L (3.5-5.1); SODIUM SERUM 141 mmol/L (136-145); UREA NITROGEN, BLOOD 9 mg/dL (7-18)
[2018-07-05 20:01] LABS: AMPHET/METH SCREEN,URINE NEGATIVE (NEGATIVE); BARBITURATE SCREEN, URINE NEGATIVE (NEGATIVE); BENZODIAZEPINES SCREEN,URINE NEGATIVE (NEGATIVE); CANNABINOID SCREEN,URINE NEGATIVE (NEGATIVE); COCAINE SCREEN,URINE NEGATIVE (NEGATIVE); METHADONE SCREEN, URINE NEGATIVE (NEGATIVE); OPIATE SCREEN,URINE NEGATIVE (NEGATIVE); PHENCYCLIDINE SCREEN,URINE NEGATIVE (NEGATIVE)
[2018-07-05 20:05] LABS: ALANINE AMINOTRANSFERASE 31 U/L (12-78); ALBUMIN 3.4 g/dL (3.4-5.0); ALKALINE PHOSPHATASE 87 U/L (46-116); ASPARTATE AMINOTRANSFERASE 20 U/L (15-37); BILIRUBIN,TOTAL 0.4 mg/dL (0.1-1.0); TOTAL PROTEIN, SERUM 7.2 g/dL (6.4-8.2)
[2018-07-05 20:07] LABS: LITHIUM < 0.20 mmol/L (0.60-1.20)
[2018-07-05 20:13] LABS: SALICYLATE 1.6 mg/dL (2.8-20.0)
[2018-07-05 20:16] LABS: ACETAMINOPHEN < 2 mcg/mL (10-30)
[2018-07-05] MEDS ORDERED: SODIUM CHLORIDE 0.9% 1,000 ML IV ONE (21:00)
[2018-07-05 21:01] LABS: HCG,QUANTITATIVE < 1 mIU/mL (0-6)
[2018-07-06 00:01] LABS: ACETAMINOPHEN < 2 mcg/mL (10-30)
[2018-07-06 00:27] LABS: LITHIUM < 0.20 mmol/L (0.60-1.20)
[2018-07-06 05:44] VITALS: BP 131/64
[2018-07-06] MEDS ORDERED: MAGNESIUM HYDROXIDE SUSPENSION 30 ML UDCUP PO PRN (06:45)
[2018-07-06] MEDS ORDERED: CloNIDine HCL 0.1 MG TABLET PO PRN (06:45)
[2018-07-06] MEDS ORDERED: MAG HYDROX/AL HYDROX/SIMETH ES 30 ML SUSPENSION UDCUP PO PRN (06:45)
[2018-07-06] MEDS ORDERED: IBUPROFEN 400 MG TABLET PO PRN (06:45)
[2018-07-06] MEDS ORDERED: ONDANSETRON HCL 4 MG TABLET PO PRN (06:45)
[2018-07-06] MEDS ORDERED: DOCUSATE SODIUM 100 MG CAPSULE PO PRN (06:45)
[2018-07-06] MEDS ORDERED: PETROLATUM,WHITE 71 GM JELLY TP PRN (06:45)
[2018-07-06] MEDS ORDERED: ACETAMINOPHEN 325 MG TABLET PO PRN (06:45)
[2018-07-06] MEDS ORDERED: LOPERAMIDE HCL 2 MG CAPSULE PO PRN (06:45)
[2018-07-06] MEDS ORDERED: ALBUTEROL SULFATE HFA 90 MCG/PUFF 8 GM INHALER IH PRN (06:45)
[2018-07-06] MEDS ORDERED: GuaiFENesin/D-METHORPHAN [SUGAR-FREE] 200-20MG/10 ML SYRUP UDCUP PO PRN (06:45)
[2018-07-06] MEDS: LEVOTHYROXINE SODIUM 100 MCG TABLET PO SCH (07:23)
[2018-07-06] MEDS: HALOPERIDOL 5 MG TABLET PO PRN (09:08)
[2018-07-06 09:39] VITALS: BP 120/60
[2018-07-06 18:20] VITALS: BP 132/66
[2018-07-06] MEDS: PRAZOSIN HCL 1 MG CAPSULE PO SCH (20:31)
[2018-07-07 04:15] VITALS: BP_SYST 100; BP_SYST 105; BP_DIAS 60; BP_DIAS 67
[2018-07-07] MEDS: HALOPERIDOL 5 MG TABLET PO PRN ×2 (04:43→14:01)
[2018-07-07 06:15] LABS: BASOPHILS % (AUTO) 0.3 % (0.0-2.0); EOSINOPHILS % (AUTO) 2.6 % (1.0-6.0); HEMATOCRIT 38.6 % (36-46); HEMOGLOBIN 13.2 g/dL (12.0-16.0); LYMPHOCYTES # (AUTO) 2.1 K/uL (1.0-4.8); LYMPHOCYTES % (AUTO) 34.2 % (22.0-44.0); MEAN CORPUSCULAR HEMOGLOBIN 30.6 pg (26.0-34.0); MEAN CORPUSCULAR HGB CONC 34.1 G/dL (31.0-37.0); MEAN CORPUSCULAR VOLUME 90 fL (80-100); MONOCYTES # (AUTO) 0.5 K/uL (0.1-1.0); MONOCYTES % (AUTO) 8.3 % (2.0-9.0); NEUTROPHILS # (AUTO) 3.4 K/uL (1.8-7.7); NEUTROPHILS % (AUTO) 54.6 % (40.0-70.0); PLATELET COUNT (AUTO) 238 K/uL (150-450); RED CELL DISTRIBUTION WIDTH 12.3 % (11.5-14.5)
[2018-07-07 06:28] LABS: HEMOGLOBIN A1C 4.5 % (4.5-6.2)
[2018-07-07 06:39] LABS: ALANINE AMINOTRANSFERASE 29 U/L (12-78); ALBUMIN 3.2 g/dL (3.4-5.0); ALKALINE PHOSPHATASE 82 U/L (46-116); ANION GAP 4 mmol/L (8-16); ASPARTATE AMINOTRANSFERASE 17 U/L (15-37); BILIRUBIN,TOTAL 0.6 mg/dL (0.1-1.0); CALCIUM, TOTAL 8.6 mg/dL (8.8-10.5); CARBON DIOXIDE 29 mmol/L (22-29); CHLORIDE 105 mmol/L (98-107); CHOL/HDL RATIO 3.6 (3.9-5.7); CHOLESTEROL 143 mg/dL (131-200); FREE T4 (FREE THYROXINE) 0.79 ng/dL (0.76-1.46); GLOMERULAR FILTR. RATE CALC > 60 mL/min (>60); GLUCOSE,RANDOM 91 mg/dL (70-110); HDL CHOLESTEROL 40 mg/dL (40-60); LDL CHOL (CALC.) 77 mg/dL (0-130); POTASSIUM 4.4 mmol/L (3.5-5.1); SODIUM SERUM 138 mmol/L (136-145); THYROID STIMULATING HORMONE 2.55 uIU/mL (0.36-3.74); TOTAL PROTEIN, SERUM 7.1 g/dL (6.4-8.2); TRIGLYCERIDES 131 mg/dL (15-150); UREA NITROGEN, BLOOD 8 mg/dL (7-18)
[2018-07-07] MEDS: LEVOTHYROXINE SODIUM 100 MCG TABLET PO SCH (06:54)
[2018-07-07] MEDS: SERTRALINE HCL 100 MG TABLET PO SCH (08:15)
[2018-07-07 11:00] VITALS: BP 128/74
[2018-07-07 15:00] LABS: HCG,QUANTITATIVE < 1 mIU/mL (0-6)
[2018-07-07] MEDS: PRAZOSIN HCL 1 MG CAPSULE PO SCH (20:11)
[2018-07-08 04:52] VITALS: BP 110/65
[2018-07-08] MEDS: HALOPERIDOL 5 MG TABLET PO PRN (04:52)
[2018-07-08] MEDS: LEVOTHYROXINE SODIUM 100 MCG TABLET PO SCH (06:09)
[2018-07-08 08:11] VITALS: BP 119/55
[2018-07-08] MEDS: SERTRALINE HCL 100 MG TABLET PO SCH (09:41)
== END 2018-07-08 16:30 | disposition home or self-care (01) | DRG 754 ==
LOC: EMS 19:07 → 3EI 07-06 04:00
PROVIDERS: ADMIT Psychiatry & Neurology Child & Adolescent Psychiatry; ATTEND Psychiatry & Neurology Child & Adolescent Psychiatry
DX: F32.9 Major depressive disorder, single episode, unspecified (principal); F25.9 Schizoaffective disorder, unspecified; E03.9 Hypothyroidism, unspecified; J45.909 Unspecified asthma, uncomplicated; S51.811A Laceration without foreign body of right forearm, initial encounter; S51.812A Laceration without foreign body of left forearm, initial encounter; F41.9 Anxiety disorder, unspecified; F19.90 Other psychoactive substance use, unspecified, uncomplicated; T50.902A Poisoning by unspecified drugs, medicaments and biological substances, intentional self-harm, initial encounter; Y92.89 Other specified places as the place of occurrence of the external cause; Z98.84 Bariatric surgery status
CPT/HCPCS: 76801; 76817; 83036; 84439; 84443; 86901; 93005; 94761; 96374; 99285; G0480; G0481; J7030

== ENCOUNTER 2018-10-31 18:26 | Inpatient (IN) | payer MEDICAID, OTHER ==
[~2018-10-31] VITALS: Ht 170.2 cm; Wt 132.0 kg
[~2018-10-31 18:26] MED LIST changes: -BENZ1TAB10 PO; -LITH600 PO
[2018-10-31 20:43] LABS: BASOPHILS % (AUTO) 0.7 % (0.0-2.0); EOSINOPHILS % (AUTO) 2.1 % (1.0-6.0); HEMATOCRIT 40.3 % (36-46); HEMOGLOBIN 13.8 g/dL (12.0-16.0); LYMPHOCYTES # (AUTO) 2.3 K/uL (1.0-4.8); LYMPHOCYTES % (AUTO) 32.7 % (22.0-44.0); MEAN CORPUSCULAR HEMOGLOBIN 29.3 pg (26.0-34.0); MEAN CORPUSCULAR HGB CONC 34.2 G/dL (31.0-37.0); MEAN CORPUSCULAR VOLUME 86 fL (80-100); MONOCYTES # (AUTO) 0.4 K/uL (0.1-1.0); MONOCYTES % (AUTO) 6.1 % (2.0-9.0); NEUTROPHILS # (AUTO) 4.1 K/uL (1.8-7.7); NEUTROPHILS % (AUTO) 58.4 % (40.0-70.0); PLATELET COUNT (AUTO) 282 K/uL (150-450); RED CELL DISTRIBUTION WIDTH 12.1 % (11.5-14.5)
[2018-10-31 20:52] LABS: ANION GAP 4 mmol/L (8-16); CALCIUM, TOTAL 8.6 mg/dL (8.8-10.5); CARBON DIOXIDE 30 mmol/L (22-29); CHLORIDE 102 mmol/L (98-107); CREATININE 0.57 mg/dL (0.60-1.30); GLOMERULAR FILTR. RATE CALC > 60 mL/min (>60); GLUCOSE,RANDOM 102 mg/dL (70-110); POTASSIUM 4.2 mmol/L (3.5-5.1); SODIUM SERUM 136 mmol/L (136-145); UREA NITROGEN, BLOOD 12 mg/dL (7-18)
[2018-10-31 21:03] LABS: ALANINE AMINOTRANSFERASE 46 U/L (12-78); ALBUMIN 3.7 g/dL (3.4-5.0); ALKALINE PHOSPHATASE 105 U/L (46-116); ASPARTATE AMINOTRANSFERASE 27 U/L (15-37); BILIRUBIN,TOTAL 0.5 mg/dL (0.1-1.0); HCG,QUANTITATIVE < 1 mIU/mL (0-6); TOTAL PROTEIN, SERUM 7.8 g/dL (6.4-8.2)
[2018-10-31 21:05] LABS: ACETAMINOPHEN < 2 mcg/mL (10-30)
[2018-10-31 21:27] LABS: AMPHET/METH SCREEN,URINE NEGATIVE (NEGATIVE); BARBITURATE SCREEN, URINE NEGATIVE (NEGATIVE); BENZODIAZEPINES SCREEN,URINE NEGATIVE (NEGATIVE); CANNABINOID SCREEN,URINE NEGATIVE (NEGATIVE); COCAINE SCREEN,URINE NEGATIVE (NEGATIVE); METHADONE SCREEN, URINE NEGATIVE (NEGATIVE); OPIATE SCREEN,URINE NEGATIVE (NEGATIVE); PHENCYCLIDINE SCREEN,URINE NEGATIVE (NEGATIVE)
[2018-10-31 21:43] LABS: SALICYLATE 1.1 mg/dL (2.8-20.0)
[2018-10-31 21:52] LABS: APPEARANCE,URINE CLEAR (CLEAR); BILIRUBIN,URINE NEGATIVE (NEGATIVE); GLUCOSE, URINE (UA) NEGATIVE (NEGATIVE); KETONES,URINE TRACE mg/dL (NEGATIVE); LEUKOCYTE ESTERASE ,URINE NEGATIVE (NEGATIVE); NITRATE,URINE NEGATIVE (NEGATIVE); OCCULT BLOOD,URINE NEGATIVE (NEGATIVE); PROTEIN,URINE NEGATIVE (NEGATIVE); UROBILINOGEN,URINE 0.2 mg/dL (<=1.0)
[2018-10-31] MEDS: LORazepam 2 MG TABLET PO PRN (22:13)
[2018-10-31] MEDS: HALOPERIDOL 5 MG TABLET PO PRN (22:13)
[2018-11-01 04:51] VITALS: BP 125/80
[2018-11-01] MEDS ORDERED: NICOTINE 14 MG/24 HOUR PATCH TD PRN (07:15)
[2018-11-01] MEDS ORDERED: MAG HYDROX/AL HYDROX/SIMETH ES 30 ML SUSPENSION UDCUP PO PRN (07:15)
[2018-11-01] MEDS ORDERED: PETROLATUM,WHITE 71 GM JELLY TP PRN (07:15)
[2018-11-01] MEDS ORDERED: ONDANSETRON HCL 4 MG TABLET PO PRN (07:15)
[2018-11-01] MEDS ORDERED: MAGNESIUM HYDROXIDE SUSPENSION 30 ML UDCUP PO PRN (07:15)
[2018-11-01] MEDS ORDERED: CloNIDine HCL 0.1 MG TABLET PO PRN (07:15)
[2018-11-01] MEDS ORDERED: ACETAMINOPHEN 325 MG TABLET PO PRN (07:15)
[2018-11-01] MEDS ORDERED: DOCUSATE SODIUM 100 MG CAPSULE PO PRN (07:15)
[2018-11-01] MEDS ORDERED: LOPERAMIDE HCL 2 MG CAPSULE PO PRN (07:15)
[2018-11-01] MEDS ORDERED: GuaiFENesin/D-METHORPHAN [SUGAR-FREE] 200-20MG/10 ML SYRUP UDCUP PO PRN (07:15)
[2018-11-01] MEDS ORDERED: IBUPROFEN 400 MG TABLET PO PRN (07:15)
[2018-11-01] MEDS ORDERED: ALBUTEROL SULFATE HFA 90 MCG/PUFF 8 GM INHALER IH PRN (07:15)
[2018-11-01 08:18] VITALS: BP 123/81
[2018-11-01 08:49] LABS: HEMOGLOBIN A1C 5.2 % (4.5-6.2)
[2018-11-01 09:13] LABS: CHOL/HDL RATIO 3.7 (3.9-5.7); FREE T4 (FREE THYROXINE) 0.77 ng/dL (0.76-1.46); THYROID STIMULATING HORMONE 5.36 uIU/mL (0.36-3.74)
[2018-11-01] MEDS: LORazepam 2 MG TABLET PO PRN ×2 (11:33→22:36)
[2018-11-01] MEDS: SERTRALINE HCL 100 MG TABLET PO SCH (14:02)
[2018-11-01 16:35] VITALS: BP 141/79
[2018-11-01] MEDS: PRAZOSIN HCL 1 MG CAPSULE PO SCH (21:00)
[2018-11-02 04:28] VITALS: BP 122/73
[2018-11-02] MEDS ORDERED: LEVOTHYROXINE SODIUM 100 MCG TABLET PO SCH (06:30)
[2018-11-02] MEDS: SERTRALINE HCL 100 MG TABLET PO SCH (09:06)
[2018-11-02] MEDS: LORazepam 2 MG TABLET PO PRN ×2 (09:10→16:40)
[2018-11-02 16:10] VITALS: BP 124/75
[2018-11-02] MEDS: HALOPERIDOL 5 MG TABLET PO PRN (16:40)
[2018-11-02] MEDS: PRAZOSIN HCL 1 MG CAPSULE PO SCH (20:29)
[2018-11-03 06:30] VITALS: BP 112/72
[2018-11-03] MEDS ORDERED: LEVOTHYROXINE SODIUM 150 MCG TABLET PO SCH (06:30)
[2018-11-03] MEDS: SERTRALINE HCL 100 MG TABLET PO SCH (08:19)
[2018-11-03 08:29] VITALS: BP 113/60
[2018-11-03] MEDS: LORazepam 2 MG TABLET PO PRN (13:29)
[2018-11-03] MEDS ORDERED: LEVO125T95 PO (15:02)
[2018-11-03 16:03] VITALS: BP 130/60
== END 2018-11-03 15:35 | disposition home or self-care (01) | DRG 751 ==
LOC: EMS 18:28 → B3A 21:34
PROVIDERS: ADMIT Psychiatry & Neurology Child & Adolescent Psychiatry; ATTEND Psychiatry & Neurology Child & Adolescent Psychiatry
DX: F33.2 Major depressive disorder, recurrent severe without psychotic features (principal); R45.851 Suicidal ideations; Z68.42 Body mass index [BMI] 45.0-49.9, adult; E03.9 Hypothyroidism, unspecified; E66.9 Obesity, unspecified; F41.9 Anxiety disorder, unspecified; Z91.5 Personal history of self-harm; F11.90 Opioid use, unspecified, uncomplicated; Z98.84 Bariatric surgery status; Z91.010 Allergy to peanuts; Z28.21 Immunization not carried out because of patient refusal; Z79.899 Other long term (current) drug therapy
CPT/HCPCS: 83036; 84439; 84443; 93005; G0480; G0481

== ENCOUNTER 2019-05-12 18:43 | Inpatient (IN) | payer MEDICAID, OTHER ==
[~2019-05-12] VITALS: Ht 170.2 cm; Wt 135.8 kg
[~2019-05-12 18:43] MED LIST changes: -LEVO100 PO; +LEVO125T95 PO
[2019-05-12 22:17] LABS: BASOPHILS % (AUTO) 0.7 % (0.0-2.0); EOSINOPHILS % (AUTO) 1.9 % (1.0-6.0); HEMATOCRIT 38.4 % (36-46); HEMOGLOBIN 12.3 g/dL (12.0-16.0); LYMPHOCYTES # (AUTO) 2.4 K/uL (1.0-4.8); LYMPHOCYTES % (AUTO) 28.9 % (22.0-44.0); MEAN CORPUSCULAR HEMOGLOBIN 27.4 pg (26.0-34.0); MEAN CORPUSCULAR HGB CONC 32.2 G/dL (31.0-37.0); MEAN CORPUSCULAR VOLUME 85 fL (80-100); MONOCYTES # (AUTO) 0.5 K/uL (0.1-1.0); MONOCYTES % (AUTO) 5.5 % (2.0-9.0); NEUTROPHILS # (AUTO) 5.3 K/uL (1.8-7.7); PLATELET COUNT (AUTO) 267 K/uL (150-450); RED BLOOD CELL COUNT(AUTO) 4.51 MIL/uL (4.00-5.20); RED CELL DISTRIBUTION WIDTH 13.4 % (11.5-14.5)
[2019-05-12 22:37] LABS: ANION GAP 9 mmol/L (8-16); CARBON DIOXIDE 26 mmol/L (22-29); CHLORIDE 106 mmol/L (98-107); GLOMERULAR FILTR. RATE CALC > 60 mL/min (>60); GLUCOSE,RANDOM 100 mg/dL (70-110); POTASSIUM 3.8 mmol/L (3.5-5.1); SODIUM SERUM 141 mmol/L (136-145); UREA NITROGEN, BLOOD 10 mg/dL (7-18)
[2019-05-12 22:48] LABS: ALANINE AMINOTRANSFERASE 26 U/L (12-78); ALBUMIN 3.6 g/dL (3.4-5.0); ALKALINE PHOSPHATASE 114 U/L (46-116); ASPARTATE AMINOTRANSFERASE 20 U/L (15-37); BILIRUBIN,TOTAL 0.4 mg/dL (0.1-1.0); HCG,QUANTITATIVE < 1 mIU/mL (0-6)
[2019-05-13] MEDS ORDERED: ZOLPIDEM TARTRATE 10 MG TABLET PO PRN (01:00)
[2019-05-13] MEDS ORDERED: QUEtiapine FUMARATE 100 MG TABLET PO PRN (01:00)
[2019-05-13] MEDS ORDERED: LORazepam 2 MG TABLET PO PRN (01:00)
[2019-05-13] MEDS ORDERED: HALOPERIDOL LACTATE 5 MG/ML VIAL IM ONE (01:30)
[2019-05-13] MEDS ORDERED: LORazepam 2 MG/ML VIAL IM ONE (01:30)
[2019-05-13] MEDS ORDERED: DiphenhydrAMINE HCL 50 MG/ML VIAL IM ONE (01:30)
[2019-05-13] MEDS ORDERED: ACETAMINOPHEN 325 MG TABLET PO PRN (09:00)
[2019-05-13] MEDS ORDERED: IBUPROFEN 600 MG TABLET PO PRN (09:00)
[2019-05-13] MEDS: SERTRALINE HCL 50 MG TABLET PO SCH (10:10)
[2019-05-13 18:42] VITALS: BP 103/68
[2019-05-13] MEDS ORDERED: LEVO150 PO (18:44)
[2019-05-13 18:53] VITALS: BP 103/68
[2019-05-13] MEDS ORDERED: -PHARMACY VACCINE NOTE- MISC ONE (19:45)
[2019-05-14 03:20] VITALS: BP 124/81
[2019-05-14] MEDS: LEVOTHYROXINE SODIUM 150 MCG TABLET PO SCH (06:56)
[2019-05-14 07:12] LABS: CHOL/HDL RATIO 3.6 (3.9-5.7)
[2019-05-14 09:03] VITALS: BP 130/73
[2019-05-14] MEDS: SERTRALINE HCL 50 MG TABLET PO SCH (09:18)
[2019-05-14] MEDS ORDERED: MAGNESIUM HYDROXIDE SUSPENSION 30 ML UDCUP PO PRN (11:30)
[2019-05-14] MEDS ORDERED: MAG HYDROX/AL HYDROX/SIMETH ES 30 ML SUSPENSION UDCUP PO PRN (11:30)
[2019-05-14] MEDS ORDERED: TUBERCULIN, PURIFIED PROTEIN DERIVATIVE 5 TU/0.1 ML SYRINGE ID ONE (11:30)
[2019-05-14] MEDS ORDERED: PROMETHAZINE HCL 25 MG TABLET PO PRN (11:30)
[2019-05-14] MEDS ORDERED: HydrOXYzine PAMOATE 50 MG CAPSULE PO PRN (11:30)
[2019-05-14] MEDS ORDERED: LOPERAMIDE HCL 2 MG CAPSULE PO PRN (11:30)
[2019-05-14] MEDS ORDERED: GuaiFENesin/D-METHORPHAN [SUGAR-FREE] 200-20MG/10 ML SYRUP UDCUP PO PRN (11:30)
[2019-05-14] MEDS ORDERED: ACETAMINOPHEN 325 MG TABLET PO PRN (11:30)
[2019-05-14] MEDS: THIAMINE HCL 100 MG TABLET PO SCH (16:07)
[2019-05-14] MEDS: HydrOXYzine PAMOATE 25 MG CAPSULE PO PRN (16:14)
[2019-05-14 19:45] VITALS: BP 112/68
[2019-05-14] MEDS: DiphenhydrAMINE HCL 25 MG CAPSULE PO SCH (20:25)
[2019-05-15 02:51] VITALS: BP 112/76
[2019-05-15] MEDS: HydrOXYzine PAMOATE 25 MG CAPSULE PO PRN ×2 (02:53→19:07)
[2019-05-15] MEDS: LEVOTHYROXINE SODIUM 150 MCG TABLET PO SCH (06:03)
[2019-05-15] MEDS: THIAMINE HCL 100 MG TABLET PO SCH ×2 (08:32→17:05)
[2019-05-15] MEDS: MULTIVITAMINS WITH MINERALS, THERAPEUTIC TABLET PO SCH (08:32)
[2019-05-15] MEDS: FOLIC ACID 1 MG TABLET PO SCH (08:32)
[2019-05-15] MEDS: ARIPiprazole 15 MG TABLET PO SCH (08:44)
[2019-05-15 09:36] VITALS: BP 103/53
[2019-05-15 19:25] VITALS: BP 119/65
[2019-05-15] MEDS: DiphenhydrAMINE HCL 25 MG CAPSULE PO SCH (21:15)
[2019-05-16 00:05] VITALS: BP 120/72
[2019-05-16] MEDS: LEVOTHYROXINE SODIUM 150 MCG TABLET PO SCH (07:04)
[2019-05-16] MEDS: ARIPiprazole 15 MG TABLET PO SCH (09:00)
[2019-05-16 09:15] VITALS: BP 132/77
[2019-05-16] MEDS: FOLIC ACID 1 MG TABLET PO SCH (09:45)
[2019-05-16] MEDS: THIAMINE HCL 100 MG TABLET PO SCH ×2 (09:45→17:50)
[2019-05-16] MEDS: MULTIVITAMINS WITH MINERALS, THERAPEUTIC TABLET PO SCH (09:45)
[2019-05-16] MEDS ORDERED: ARIPiprazole ER SUSPENSION 400 MG PRE-FILLED DUAL CHAMBER SYRINGE IM ONE (15:00)
[2019-06-13] MEDS ORDERED: ARIPiprazole ER SUSPENSION 400 MG PRE-FILLED DUAL CHAMBER SYRINGE IM SCH (09:00)
== END 2019-05-16 18:40 | disposition left against medical advice (07) | DRG 751 ==
LOC: EMS 18:46 → 3EI 05-13 18:00
PROVIDERS: ADMIT Psychiatry & Neurology Psychiatry; ATTEND Psychiatry & Neurology Psychiatry
DX: F33.2 Major depressive disorder, recurrent severe without psychotic features (principal); R45.851 Suicidal ideations; E66.01 Morbid (severe) obesity due to excess calories; E03.9 Hypothyroidism, unspecified; Z28.21 Immunization not carried out because of patient refusal; Z59.0 Homelessness; Z68.42 Body mass index [BMI] 45.0-49.9, adult; F12.90 Cannabis use, unspecified, uncomplicated; G47.10 Hypersomnia, unspecified; J45.909 Unspecified asthma, uncomplicated; Z65.3 Problems related to other legal circumstances; Z91.14 Patient's other noncompliance with medication regimen; Z91.19 Patient's noncompliance with other medical treatment and regimen; Z98.84 Bariatric surgery status; F41.9 Anxiety disorder, unspecified
CPT/HCPCS: 99291; G0480; J0401; J1200; J1630; J2060

== ENCOUNTER 2019-12-04 18:07 | Inpatient (IN) | payer MEDICAID, OTHER ==
[~2019-12-04] VITALS: Ht 170.2 cm; Wt 130.1 kg
[2019-12-04] MEDS ORDERED: SERT25TA PO (20:38)
[2019-12-04] MEDS ORDERED: ARIP400S IM (20:38)
[2019-12-04] MEDS ORDERED: PRAZ2CAP2 PO (20:38)
[2019-12-04] MEDS ORDERED: MONT10TA26 PO (20:38)
[2019-12-05] MEDS: LORazepam 2 MG TABLET PO PRN (04:21)
[2019-12-05] MEDS ORDERED: DiphenhydrAMINE HCL 50 MG/ML VIAL IM ONE ×2 (04:45→12:30)
[2019-12-05] MEDS ORDERED: LORazepam 2 MG/ML VIAL IM ONE ×2 (04:45→12:30)
[2019-12-05] MEDS ORDERED: HALOPERIDOL LACTATE 5 MG/ML VIAL IM ONE ×2 (04:45→12:30)
[2019-12-05] MEDS ORDERED: HALOPERIDOL LACTATE 5 MG/ML VIAL ONE (04:49)
[2019-12-05] MEDS ORDERED: DiphenhydrAMINE HCL 50 MG/ML VIAL ONE (04:49)
[2019-12-05] MEDS ORDERED: LORazepam 2 MG/ML VIAL ONE (04:49)
[2019-12-05] MEDS: ARIPiprazole 15 MG TABLET PO SCH (09:15)
[2019-12-05] MEDS ORDERED: DOCUSATE SODIUM 100 MG CAPSULE PO PRN (09:30)
[2019-12-05] MEDS ORDERED: NICOTINE 14 MG/24 HOUR PATCH TD PRN (09:30)
[2019-12-05] MEDS ORDERED: LOPERAMIDE HCL 2 MG CAPSULE PO PRN (09:30)
[2019-12-05] MEDS ORDERED: MAG HYDROX/AL HYDROX/SIMETH ES 30 ML SUSPENSION UDCUP PO PRN (09:30)
[2019-12-05] MEDS ORDERED: IBUPROFEN 400 MG TABLET PO PRN (09:30)
[2019-12-05] MEDS ORDERED: GuaiFENesin/D-METHORPHAN [SUGAR-FREE] 200-20MG/10 ML SYRUP UDCUP PO PRN (09:30)
[2019-12-05] MEDS ORDERED: ONDANSETRON HCL 4 MG TABLET PO PRN (09:30)
[2019-12-05] MEDS ORDERED: ALBUTEROL SULFATE HFA 90 MCG/PUFF 8 GM INHALER IH PRN (09:30)
[2019-12-05] MEDS ORDERED: ACETAMINOPHEN 325 MG TABLET PO PRN (09:30)
[2019-12-05] MEDS ORDERED: PETROLATUM,WHITE 28 GM JELLY TP PRN (09:30)
[2019-12-05] MEDS ORDERED: CloNIDine HCL 0.1 MG TABLET PO PRN (09:30)
[2019-12-05] MEDS ORDERED: MAGNESIUM HYDROXIDE SUSPENSION 30 ML UDCUP PO PRN (09:30)
[2019-12-05] MEDS: SERTRALINE HCL 50 MG TABLET PO SCH (09:32)
[2019-12-05 16:22] VITALS: BP 112/69
[2019-12-06 05:40] VITALS: BP 108/64
[2019-12-06] MEDS: ARIPiprazole 15 MG TABLET PO SCH ×2 (09:00→09:20)
[2019-12-06] MEDS: MONTELUKAST SODIUM 10 MG TABLET PO SCH (09:19)
[2019-12-06] MEDS: SERTRALINE HCL 50 MG TABLET PO SCH (09:20)
[2019-12-06 16:00] VITALS: BP 126/78
[2019-12-06] MEDS: HALOPERIDOL 5 MG TABLET PO PRN (16:39)
[2019-12-06] MEDS: LORazepam 2 MG TABLET PO PRN (16:40)
[2019-12-06] MEDS ORDERED: HALOPERIDOL LACTATE 5 MG/ML VIAL ONE ×2 (16:57)
[2019-12-06] MEDS ORDERED: SERT50TA12 PO (16:59)
[2019-12-06] MEDS ORDERED: HALOPERIDOL LACTATE 5 MG/ML VIAL IM ONE (17:00)
[2019-12-06] MEDS ORDERED: DiphenhydrAMINE HCL 50 MG/ML VIAL IM ONE (17:00)
[2019-12-06] MEDS ORDERED: LORazepam 2 MG/ML VIAL IM ONE (17:00)
[2019-12-06 17:35] VITALS: BP 108/61
[2019-12-07] MEDS: SERTRALINE HCL 50 MG TABLET PO SCH (08:30)
[2019-12-07] MEDS: MONTELUKAST SODIUM 10 MG TABLET PO SCH (08:31)
[2019-12-07] MEDS: ARIPiprazole 15 MG TABLET PO SCH (08:31)
[2019-12-07 13:45] VITALS: BP 102/62
[2019-12-07] MEDS: HALOPERIDOL 5 MG TABLET PO PRN (16:35)
[2019-12-07] MEDS: LORazepam 2 MG TABLET PO PRN (16:35)
[2019-12-07 17:32] VITALS: BP 103/65
[2019-12-08 01:42] VITALS: BP 126/69
[2019-12-08] MEDS: LORazepam 2 MG TABLET PO PRN ×3 (01:43→15:56)
[2019-12-08] MEDS: HALOPERIDOL 5 MG TABLET PO PRN ×2 (01:43→15:56)
[2019-12-08] MEDS: ARIPiprazole 15 MG TABLET PO SCH (08:46)
[2019-12-08] MEDS: SERTRALINE HCL 50 MG TABLET PO SCH (08:46)
[2019-12-08] MEDS: MONTELUKAST SODIUM 10 MG TABLET PO SCH (08:46)
[2019-12-08 16:20] VITALS: BP 103/68
[2019-12-09 06:52] VITALS: BP 130/77
[2019-12-09] MEDS: LORazepam 2 MG TABLET PO PRN ×2 (08:56→20:50)
[2019-12-09] MEDS: SERTRALINE HCL 50 MG TABLET PO SCH (08:56)
[2019-12-09] MEDS: MONTELUKAST SODIUM 10 MG TABLET PO SCH (08:56)
[2019-12-09] MEDS: ARIPiprazole 15 MG TABLET PO SCH (08:56)
[2019-12-09 16:46] VITALS: BP 120/78
[2019-12-09] MEDS: HALOPERIDOL 5 MG TABLET PO PRN (20:50)
[2019-12-10 06:25] VITALS: BP 105/60
[2019-12-10] MEDS: MONTELUKAST SODIUM 10 MG TABLET PO SCH (09:08)
[2019-12-10] MEDS: SERTRALINE HCL 50 MG TABLET PO SCH (09:08)
[2019-12-10] MEDS: ARIPiprazole 15 MG TABLET PO SCH (09:08)
[2019-12-10 16:12] VITALS: BP 116/70
[2019-12-10] MEDS: LORazepam 2 MG TABLET PO PRN (16:43)
[2019-12-10] MEDS: ZOLPIDEM TARTRATE 10 MG TABLET PO PRN (21:45)
[2019-12-11 06:01] VITALS: BP 103/65
[2019-12-11 08:51] VITALS: BP 129/62
[2019-12-11] MEDS: MONTELUKAST SODIUM 10 MG TABLET PO SCH (09:16)
[2019-12-11] MEDS: SERTRALINE HCL 50 MG TABLET PO SCH (09:16)
[2019-12-11] MEDS: ARIPiprazole 15 MG TABLET PO SCH (09:16)
[2019-12-11] MEDS: LORazepam 2 MG TABLET PO PRN (14:37)
[2019-12-11 16:15] VITALS: BP 114/70
[2019-12-12 00:17] VITALS: BP 107/62
[2019-12-12] MEDS: ARIPiprazole 15 MG TABLET PO SCH (09:10)
[2019-12-12] MEDS: SERTRALINE HCL 50 MG TABLET PO SCH (09:10)
[2019-12-12] MEDS: MONTELUKAST SODIUM 10 MG TABLET PO SCH (12:47)
[2019-12-12] MEDS: LORazepam 2 MG TABLET PO PRN ×2 (13:40→19:23)
[2019-12-12 16:15] VITALS: BP 108/60
[2019-12-12] MEDS: ZOLPIDEM TARTRATE 10 MG TABLET PO PRN (23:22)
[2019-12-13 01:13] VITALS: BP 104/71
[2019-12-13 09:15] VITALS: BP 105/61
[2019-12-13] MEDS: ARIPiprazole 15 MG TABLET PO SCH (10:32)
[2019-12-13] MEDS: MONTELUKAST SODIUM 10 MG TABLET PO SCH (10:33)
[2019-12-13] MEDS: MULTIVITAMINS WITH MINERALS, THERAPEUTIC TABLET PO SCH (10:34)
[2019-12-13] MEDS: SERTRALINE HCL 50 MG TABLET PO SCH (10:34)
[2019-12-13 16:34] VITALS: BP 103/70
[2019-12-13] MEDS: LORazepam 2 MG TABLET PO PRN (18:56)
[2019-12-13] MEDS: ZOLPIDEM TARTRATE 10 MG TABLET PO PRN (23:36)
[2019-12-14 01:20] VITALS: BP 133/75
[2019-12-14 08:28] LABS: FREE T4 (FREE THYROXINE) 0.62 ng/dL (0.76-1.46); THYROID STIMULATING HORMONE 7.05 uIU/mL (0.36-3.74)
[2019-12-14] MEDS: MONTELUKAST SODIUM 10 MG TABLET PO SCH (08:34)
[2019-12-14] MEDS: MULTIVITAMINS WITH MINERALS, THERAPEUTIC TABLET PO SCH (08:34)
[2019-12-14] MEDS: ARIPiprazole 15 MG TABLET PO SCH (08:34)
[2019-12-14] MEDS: SERTRALINE HCL 50 MG TABLET PO SCH (08:34)
[2019-12-14] MEDS ORDERED: LEVOTHYROXINE SODIUM 25 MCG TABLET PO SCH (09:15)
[2019-12-14 09:18] VITALS: BP 112/65
[2019-12-14] MEDS ORDERED: ARIP15TA2 PO (10:45)
[2019-12-14] MEDS ORDERED: MONT10TA21 PO (10:51)
[2019-12-14] MEDS ORDERED: LEVO25TA9 PO (10:51)
[2019-12-15] MEDS ORDERED: LEVOTHYROXINE SODIUM 25 MCG TABLET PO SCH (06:30)
== END 2019-12-14 15:30 | disposition home or self-care (01) | DRG 754 ==
LOC: EMS 18:11 → B3A 12-05 00:01 → B2S 12-09 17:15
PROVIDERS: ADMIT Psychiatry & Neurology Child & Adolescent Psychiatry; ATTEND Psychiatry & Neurology Child & Adolescent Psychiatry
DX: F32.9 Major depressive disorder, single episode, unspecified (principal); R45.851 Suicidal ideations; E03.9 Hypothyroidism, unspecified; Z59.0 Homelessness; F41.9 Anxiety disorder, unspecified; F19.10 Other psychoactive substance abuse, uncomplicated; R09.81 Nasal congestion; J45.909 Unspecified asthma, uncomplicated; Z79.899 Other long term (current) drug therapy; Z91.5 Personal history of self-harm; Z98.84 Bariatric surgery status; Z91.010 Allergy to peanuts; Z71.51 Drug abuse counseling and surveillance of drug abuser
CPT/HCPCS: 84439; 84443; J1200; J1630; J2060

== ENCOUNTER 2021-03-09 21:42 | Inpatient (IN) | payer MEDICAID, OTHER ==
[~2021-03-09] VITALS: Ht 170.2 cm; Wt 147.3 kg
[~2021-03-09 21:42] MED LIST changes: +ARIP15TA27 PO; -LEVO125T95 PO; +LEVO25TA9 PO; +MONT10TA32 PO; -PRAZ1 PO; +SERT-158 PO; -SERT100T12 PO
[2021-03-09 22:10] LABS: COVID AG,FIA SOURCE NASOPHARYNGEAL
[2021-03-09 22:13] LABS: AMPHET/METH SCREEN,URINE NEGATIVE (NEGATIVE); BARBITURATE SCREEN, URINE NEGATIVE (NEGATIVE); BENZODIAZEPINES SCREEN,URINE NEGATIVE (NEGATIVE); CANNABINOID SCREEN,URINE NEGATIVE (NEGATIVE); COCAINE SCREEN,URINE NEGATIVE (NEGATIVE); METHADONE SCREEN, URINE NEGATIVE (NEGATIVE); OPIATE SCREEN,URINE NEGATIVE (NEGATIVE)
[2021-03-09 22:15] LABS: PHENCYCLIDINE SCREEN,URINE NEGATIVE (NEGATIVE)
[2021-03-09 22:16] LABS: BASOPHILS % (AUTO) 1.1 % (0.0-2.0); HEMATOCRIT 31.5 % (36-46); HEMOGLOBIN 9.7 g/dL (12.0-16.0); LYMPHOCYTES % (AUTO) 28.2 % (22.0-44.0); MEAN CORPUSCULAR HEMOGLOBIN 22.8 pg (26.0-34.0); MEAN CORPUSCULAR HGB CONC 30.7 G/dL (31.0-37.0); MEAN CORPUSCULAR VOLUME 74 fL (80-100); MONOCYTES # (AUTO) 0.6 K/uL (0.1-1.0); NEUTROPHILS # (AUTO) 4.2 K/uL (1.8-7.7); NEUTROPHILS % (AUTO) 60.7 % (40.0-70.0); PLATELET COUNT (AUTO) 245 K/uL (150-450); RED BLOOD CELL COUNT(AUTO) 4.25 MIL/uL (4.00-5.20); RED CELL DISTRIBUTION WIDTH 16.2 % (11.5-14.5)
[2021-03-09 22:22] LABS: ANION GAP 10 mmol/L (8-16); CALCIUM, TOTAL 8.5 mg/dL (8.8-10.5); CARBON DIOXIDE 25 mmol/L (22-29); CHLORIDE 103 mmol/L (98-107); CREATININE 0.64 mg/dL (0.60-1.30); GLOMERULAR FILTR. RATE CALC > 60 mL/min (>60); GLUCOSE,RANDOM 88 mg/dL (70-110); POTASSIUM 3.6 mmol/L (3.5-5.1); SODIUM SERUM 138 mmol/L (136-145); UREA NITROGEN, BLOOD 12 mg/dL (7-18)
[2021-03-09 22:34] LABS: ALANINE AMINOTRANSFERASE 56 U/L (12-78); ALBUMIN 3.7 g/dL (3.4-5.0); ALKALINE PHOSPHATASE 104 U/L (46-116); ASPARTATE AMINOTRANSFERASE 69 U/L (15-37); BILIRUBIN,TOTAL 0.3 mg/dL (0.1-1.0); HCG,QUANTITATIVE < 1 mIU/mL (0-6); TOTAL PROTEIN, SERUM 7.4 g/dL (6.4-8.2)
[2021-03-09 22:36] LABS: SALICYLATE 1.1 mg/dL (2.8-20.0)
[2021-03-09 22:46] LABS: ACETAMINOPHEN < 2 mcg/mL (10-30)
[2021-03-09] MEDS ORDERED: HALOPERIDOL 5 MG TABLET PO PRN (23:00)
[2021-03-09] MEDS ORDERED: ZOLPIDEM TARTRATE 10 MG TABLET PO PRN (23:00)
[2021-03-09] MEDS ORDERED: ONDANSETRON HCL 4 MG TABLET PO ONE (23:15)
[2021-03-10] MEDS ORDERED: LORazepam 2 MG TABLET PO ONE (02:45)
[2021-03-10] MEDS ORDERED: LORazepam 1 MG TABLET PO ONE (03:00)
[2021-03-10 03:37] LABS: CHOL/HDL RATIO 3.1 (3.9-5.7); CHOLESTEROL 137 mg/dL (131-200); HDL CHOLESTEROL 44 mg/dL (40-60); LDL CHOL (CALC.) 67 mg/dL (0-130); TRIGLYCERIDES 128 mg/dL (15-150)
[2021-03-10] MEDS ORDERED: -PHARMACY VACCINE NOTE- MISC ONE (06:15)
[2021-03-10] MEDS: LORazepam 2 MG TABLET PO PRN ×2 (06:43→16:32)
[2021-03-10] MEDS ORDERED: CloNIDine HCL 0.1 MG TABLET PO PRN (07:00)
[2021-03-10] MEDS ORDERED: MAG HYDROX/AL HYDROX/SIMETH ES 30 ML SUSPENSION UDCUP PO PRN (07:00)
[2021-03-10] MEDS ORDERED: BACITRACIN 28 GM OINTMENT TP PRN (07:00)
[2021-03-10] MEDS ORDERED: DOCUSATE SODIUM 100 MG CAPSULE PO PRN (07:00)
[2021-03-10] MEDS ORDERED: ALBUTEROL SULFATE HFA 90 MCG/PUFF 8 GM INHALER IH PRN (07:00)
[2021-03-10] MEDS ORDERED: ONDANSETRON HCL 4 MG TABLET PO PRN (07:00)
[2021-03-10] MEDS ORDERED: ACETAMINOPHEN 325 MG TABLET PO PRN (07:00)
[2021-03-10] MEDS ORDERED: OMEPRAZOLE 20 MG CAPSULE PO PRN (07:00)
[2021-03-10] MEDS ORDERED: PETROLATUM,WHITE 28 GM JELLY TP PRN (07:00)
[2021-03-10] MEDS ORDERED: IBUPROFEN 600 MG TABLET PO PRN (07:00)
[2021-03-10] MEDS ORDERED: MAGNESIUM HYDROXIDE SUSPENSION 30 ML UDCUP PO PRN (07:00)
[2021-03-10] MEDS: LEVOTHYROXINE SODIUM 25 MCG TABLET PO SCH (07:00)
[2021-03-10] MEDS ORDERED: LOPERAMIDE HCL 2 MG CAPSULE PO PRN (07:00)
[2021-03-10] MEDS: ARIPiprazole 15 MG TABLET PO SCH (10:45)
[2021-03-10] MEDS: SERTRALINE HCL 50 MG TABLET PO SCH (10:45)
[2021-03-10 16:12] VITALS: BP 121/73
[2021-03-11] MEDS: LEVOTHYROXINE SODIUM 25 MCG TABLET PO SCH (07:01)
[2021-03-11] MEDS: ARIPiprazole 15 MG TABLET PO SCH (07:53)
[2021-03-11] MEDS: SERTRALINE HCL 50 MG TABLET PO SCH (07:53)
[2021-03-11 08:31] VITALS: BP 128/76
[2021-03-11] MEDS: LORazepam 2 MG TABLET PO PRN (09:37)
[2021-03-11 16:00] VITALS: BP 112/73
[2021-03-12] MEDS: LEVOTHYROXINE SODIUM 25 MCG TABLET PO SCH (06:44)
[2021-03-12] MEDS: ARIPiprazole 15 MG TABLET PO SCH (08:43)
[2021-03-12] MEDS: SERTRALINE HCL 50 MG TABLET PO SCH (08:43)
[2021-03-12 09:52] VITALS: BP 136/87
[2021-03-12] MEDS ORDERED: SERT-158 PO (16:14)
[2021-03-12] MEDS ORDERED: ARIP15TA27 PO (16:15)
== END 2021-03-12 17:45 | disposition home or self-care (01) | DRG 753 ==
LOC: EMS 21:42 → 3EC 23:00
PROVIDERS: ADMIT Psychiatry & Neurology Psychiatry; ATTEND Psychiatry & Neurology Psychiatry
DX: F31.9 Bipolar disorder, unspecified (principal); E03.9 Hypothyroidism, unspecified; F41.1 Generalized anxiety disorder; J45.909 Unspecified asthma, uncomplicated; Z20.822 Contact with and (suspected) exposure to COVID-19; E66.9 Obesity, unspecified; F41.8 Other specified anxiety disorders; K59.00 Constipation, unspecified
CPT/HCPCS: 80053; 80061; 84702; 85025; 87426; 93005; 99291; G0480; G0481; Q0162

== ENCOUNTER 2023-03-21 21:41 | Inpatient (IN) | payer MEDICAID, OTHER ==
[~2023-03-21] VITALS: Ht 170.2 cm; Wt 131.0 kg
[~2023-03-21 21:41] MED LIST changes: +LEVO200 PO; -LEVO25TA9 PO; +METO25XL PO; -MONT10TA32 PO
[2023-03-21] MEDS ORDERED: LORazepam 2 MG TABLET PO ONE (23:30)
[2023-03-21] MEDS ORDERED: DiphenhydrAMINE HCL 25 MG CAPSULE PO ONE (23:30)
[2023-03-22 00:28] LABS: BASOPHILS % (AUTO) 0.3 % (0.0-2.0); EOSINOPHILS % (AUTO) 0.4 % (1.0-6.0); HEMATOCRIT 39.7 % (36-46); HEMOGLOBIN 13.5 g/dL (12.0-16.0); LYMPHOCYTES # (AUTO) 0.9 K/uL (1.0-4.8); LYMPHOCYTES % (AUTO) 15.7 % (22.0-44.0); MEAN CORPUSCULAR HEMOGLOBIN 31.1 pg (26.0-34.0); MEAN CORPUSCULAR HGB CONC 34.1 G/dL (31.0-37.0); MEAN CORPUSCULAR VOLUME 91 fL (80-100); MONOCYTES # (AUTO) 0.1 K/uL (0.1-1.0); MONOCYTES % (AUTO) 2.3 % (2.0-9.0); NEUTROPHILS # (AUTO) 4.9 K/uL (1.8-7.7); NEUTROPHILS % (AUTO) 81.3 % (40.0-70.0); PLATELET COUNT (AUTO) 217 K/uL (150-450); RED BLOOD CELL COUNT(AUTO) 4.36 MIL/uL (4.00-5.20)
[2023-03-22 00:37] LABS: ANION GAP 10 mmol/L (8-16); CALCIUM, TOTAL 8.5 mg/dL (8.8-10.5); CARBON DIOXIDE 28 mmol/L (22-29); CHLORIDE 103 mmol/L (98-107); CREATININE 0.63 mg/dL (0.60-1.30); GLOMERULAR FILTR. RATE CALC > 60 mL/min (>60); GLUCOSE,RANDOM 120 mg/dL (70-110); POTASSIUM 3.4 mmol/L (3.5-5.1); SODIUM SERUM 141 mmol/L (136-145); UREA NITROGEN, BLOOD 6 mg/dL (7-18)
[2023-03-22 00:42] LABS: ALANINE AMINOTRANSFERASE 37 U/L (12-78); ALBUMIN 3.5 g/dL (3.4-5.0); ALKALINE PHOSPHATASE 96 U/L (46-116); ASPARTATE AMINOTRANSFERASE 24 U/L (15-37); BILIRUBIN,TOTAL 0.7 mg/dL (0.1-1.0); TOTAL PROTEIN, SERUM 7.3 g/dL (6.4-8.2)
[2023-03-22 00:43] LABS: ACETAMINOPHEN < 2 mcg/mL (10-30)
[2023-03-22 00:51] LABS: SALICYLATE 0.2 mg/dL (2.8-20.0)
[2023-03-22 00:54] LABS: COVID AG,FIA SOURCE NASOPHARYNGEAL
[2023-03-22] MEDS ORDERED: POTASSIUM CHLORIDE 10% 40 MEQ/30 ML LIQUID UDCUP PO ONE (01:15)
[2023-03-22] MEDS ORDERED: HALOPERIDOL 5 MG TABLET PO PRN (04:30)
[2023-03-22 04:36] VITALS: BP 112/68
[2023-03-22] MEDS ORDERED: POTASSIUM CHLORIDE 20 MEQ ER TABLET PO ONE (08:30)
[2023-03-22] MEDS ORDERED: CloNIDine HCL 0.1 MG TABLET PO PRN (08:30)
[2023-03-22] MEDS ORDERED: ONDANSETRON HCL 4 MG TABLET PO PRN (08:30)
[2023-03-22] MEDS ORDERED: ACETAMINOPHEN 325 MG TABLET PO PRN (08:30)
[2023-03-22] MEDS ORDERED: OMEPRAZOLE 20 MG CAPSULE PO PRN (08:30)
[2023-03-22] MEDS ORDERED: ALBUTEROL SULFATE HFA 90 MCG/PUFF 8 GM INHALER IH PRN (08:30)
[2023-03-22] MEDS ORDERED: LOPERAMIDE HCL 2 MG CAPSULE PO PRN (08:30)
[2023-03-22] MEDS ORDERED: MAG HYDROX/AL HYDROX/SIMETH ES 30 ML SUSPENSION UDCUP PO PRN (08:30)
[2023-03-22] MEDS ORDERED: PETROLATUM,WHITE 28 GM JELLY TP PRN (08:30)
[2023-03-22] MEDS ORDERED: IBUPROFEN 600 MG TABLET PO PRN (08:30)
[2023-03-22] MEDS ORDERED: MAGNESIUM HYDROXIDE SUSPENSION 30 ML UDCUP PO PRN (08:30)
[2023-03-22] MEDS ORDERED: DOCUSATE SODIUM 100 MG CAPSULE PO PRN (08:30)
[2023-03-22] MEDS ORDERED: BACITRACIN 28 GM OINTMENT TP PRN (08:30)
[2023-03-22 08:43] VITALS: BP 123/78
[2023-03-22] MEDS: METOPROLOL SUCCINATE 25 MG ER TABLET PO SCH (08:51)
[2023-03-22] MEDS: LORazepam 2 MG TABLET PO PRN ×3 (10:59→21:21)
[2023-03-22] MEDS: ZOLPIDEM TARTRATE 10 MG TABLET PO PRN (21:21)
[2023-03-23] MEDS: LEVOTHYROXINE SODIUM 200 MCG TABLET PO SCH (06:00)
[2023-03-23 07:45] LABS: APPEARANCE,URINE CLEAR (CLEAR); BACTERIA,URINE None Seen /HPF (None Seen); BILIRUBIN,URINE NEGATIVE (NEGATIVE); GLUCOSE, URINE (UA) NEGATIVE (NEGATIVE); KETONES,URINE NEGATIVE (NEGATIVE); LEUKOCYTE ESTERASE ,URINE NEGATIVE (NEGATIVE); NITRATE,URINE NEGATIVE (NEGATIVE); OCCULT BLOOD,URINE NEGATIVE (NEGATIVE); PH,URINE 5.5 (5.0-8.0); PROTEIN,URINE NEGATIVE (NEGATIVE); RBC,URINE None Seen /HPF (0-2); UROBILINOGEN,URINE <=1.0 mg/dL (<=1.0); WBC,URINE None Seen /HPF (0-5)
[2023-03-23] MEDS: METOPROLOL SUCCINATE 25 MG ER TABLET PO SCH (08:22)
[2023-03-23 08:32] LABS: AMPHET/METH SCREEN,URINE NEGATIVE (NEGATIVE); BARBITURATE SCREEN, URINE NEGATIVE (NEGATIVE); BENZODIAZEPINES SCREEN,URINE NEGATIVE (NEGATIVE); CANNABINOID SCREEN,URINE NEGATIVE (NEGATIVE); COCAINE SCREEN,URINE NEGATIVE (NEGATIVE); METHADONE SCREEN, URINE NEGATIVE (NEGATIVE); OPIATE SCREEN,URINE NEGATIVE (NEGATIVE); PHENCYCLIDINE SCREEN,URINE NEGATIVE (NEGATIVE)
[2023-03-23] MEDS: LORazepam 2 MG TABLET PO PRN ×3 (08:44→20:59)
[2023-03-23 08:51] VITALS: BP 126/79
[2023-03-23] MEDS: ZOLPIDEM TARTRATE 10 MG TABLET PO PRN (20:59)
[2023-03-24] MEDS: LEVOTHYROXINE SODIUM 200 MCG TABLET PO SCH (06:03)
[2023-03-24] MEDS: METOPROLOL SUCCINATE 25 MG ER TABLET PO SCH (08:06)
[2023-03-24 08:22] VITALS: BP 109/60
== END 2023-03-24 10:16 | disposition home or self-care (01) | DRG 753 ==
LOC: EMS 21:46 → B3A 03-22 01:00
PROVIDERS: ADMIT Psychiatry & Neurology Psychiatry; ATTEND Psychiatry & Neurology Psychiatry
DX: F31.9 Bipolar disorder, unspecified (principal); R45.851 Suicidal ideations; E03.9 Hypothyroidism, unspecified; F20.9 Schizophrenia, unspecified; E87.6 Hypokalemia; F41.1 Generalized anxiety disorder; G47.00 Insomnia, unspecified; I10 Essential (primary) hypertension; J45.909 Unspecified asthma, uncomplicated; K59.00 Constipation, unspecified; F19.10 Other psychoactive substance abuse, uncomplicated; F10.10 Alcohol abuse, uncomplicated; Z20.822 Contact with and (suspected) exposure to COVID-19; Z98.84 Bariatric surgery status; Z91.010 Allergy to peanuts; Z79.899 Other long term (current) drug therapy
CPT/HCPCS: 80053; 80307; 81001; 84132; 84703; 85025; 99285; G0480; G0481

== ENCOUNTER 2024-06-11 01:42 | Inpatient (IN) | payer MEDICAID, OTHER ==
[~2024-06-11] VITALS: Ht 170.2 cm; Wt 133.4 kg
[~2024-06-11 01:42] MED LIST changes: -ARIP15TA27 PO; -SERT-158 PO
[2024-06-11] MEDS: DiphenhydrAMINE HCL 50 MG/ML VIAL IM ONE (02:16)
[2024-06-11] MEDS: HALOPERIDOL LACTATE 5 MG/ML VIAL IM ONE (02:16)
[2024-06-11] MEDS: LORazepam 2 MG/ML VIAL IM ONE (02:17)
[2024-06-11] MEDS ORDERED: ZOLPIDEM TARTRATE 10 MG TABLET PO PRN (02:45)
[2024-06-11 04:51] LABS: COVID AG,FIA SOURCE NASAL SWAB
[2024-06-11 04:54] LABS: BASOPHILS % (AUTO) 0.8 % (0.0-2.0); EOSINOPHILS % (AUTO) 1.4 % (1.0-6.0); HEMATOCRIT 35.7 % (36-46); HEMOGLOBIN 11.6 g/dL (12.0-16.0); LYMPHOCYTES # (AUTO) 2.3 K/uL (1.0-4.8); LYMPHOCYTES % (AUTO) 36.9 % (22.0-44.0); MEAN CORPUSCULAR HEMOGLOBIN 28.1 pg (26.0-34.0); MEAN CORPUSCULAR HGB CONC 32.6 G/dL (31.0-37.0); MEAN CORPUSCULAR VOLUME 86 fL (80-100); MONOCYTES # (AUTO) 0.5 K/uL (0.1-1.0); MONOCYTES % (AUTO) 7.7 % (2.0-9.0); NEUTROPHILS # (AUTO) 3.3 K/uL (1.8-7.7); NEUTROPHILS % (AUTO) 53.2 % (40.0-70.0); PLATELET COUNT (AUTO) 219 K/uL (150-450); RED BLOOD CELL COUNT(AUTO) 4.14 MIL/uL (4.00-5.20); RED CELL DISTRIBUTION WIDTH 13.5 % (11.5-14.5); WHITE BLOOD COUNT (AUTO) 6.3 K/uL (4.5-11.0)
[2024-06-11 05:02] LABS: SARS-COV2 (COVID) ANTIGEN,FIA Negative (Negative)
[2024-06-11 05:03] LABS: ANION GAP 6 mmol/L (8-16); CALCIUM, TOTAL 8.1 mg/dL (8.8-10.5); CARBON DIOXIDE 30 mmol/L (22-29); CHLORIDE 101 mmol/L (98-107); CREATININE 0.59 mg/dL (0.60-1.30); GLOMERULAR FILTR. RATE CALC > 60 mL/min (>60); GLUCOSE,RANDOM 97 mg/dL (70-110); POTASSIUM 3.8 mmol/L (3.5-5.1); SODIUM SERUM 137 mmol/L (136-145); UREA NITROGEN, BLOOD 11 mg/dL (7-18)
[2024-06-11 10:23] VITALS: BP 101/67; PULSE 66; RESP 18; TEMP 97.4
[2024-06-11] MEDS ORDERED: IBUPROFEN 400 MG TABLET PO PRN (14:30)
[2024-06-11] MEDS ORDERED: ALBUTEROL SULFATE HFA 90 MCG/PUFF 8 GM INHALER IH PRN (14:30)
[2024-06-11] MEDS ORDERED: ONDANSETRON HCL 4 MG TABLET PO PRN (14:30)
[2024-06-11] MEDS ORDERED: ACETAMINOPHEN 325 MG TABLET PO PRN (14:30)
[2024-06-11] MEDS ORDERED: MAG HYDROX/ALUMINUM HYD/SIMETH ES 30 ML SUSPENSION UDCUP PO PRN (14:30)
[2024-06-11] MEDS ORDERED: GuaiFENesin/D-METHORPHAN [SUGAR-FREE] 200-20MG/10 ML SYRUP UDCUP PO PRN (14:30)
[2024-06-11] MEDS ORDERED: DOCUSATE SODIUM 100 MG CAPSULE PO PRN (14:30)
[2024-06-11] MEDS ORDERED: PETROLATUM,WHITE 28 GM JELLY TP PRN (14:30)
[2024-06-11] MEDS ORDERED: NICOTINE 14 MG/24 HOUR PATCH TD PRN (14:30)
[2024-06-11] MEDS ORDERED: CloNIDine HCL 0.1 MG TABLET PO PRN (14:30)
[2024-06-11] MEDS ORDERED: MAGNESIUM HYDROXIDE SUSPENSION 30 ML UDCUP PO PRN (14:30)
[2024-06-11] MEDS ORDERED: LOPERAMIDE HCL 2 MG CAPSULE PO PRN (14:30)
[2024-06-11] MEDS: BACITRACIN 28 GM OINTMENT TP SCH (17:00)
[2024-06-11 21:54] VITALS: BP 84/59; PULSE 64; RESP 18; TEMP 98
[2024-06-12] MEDS: LORazepam 2 MG TABLET PO PRN (06:28)
[2024-06-12] MEDS: LEVOTHYROXINE SODIUM 200 MCG TABLET PO SCH (06:46)
[2024-06-12] MEDS ORDERED: LEVOTHYROXINE SODIUM 200 MCG TABLET PO SCH (07:00)
[2024-06-12 10:56] LABS: APPEARANCE,URINE CLEAR (CLEAR); BILIRUBIN,URINE NEGATIVE (NEGATIVE); COLOR,URINE LIGHT YELLOW (YELLOW); GLUCOSE, URINE (UA) NEGATIVE (NEGATIVE); KETONES,URINE NEGATIVE (NEGATIVE); LEUKOCYTE ESTERASE ,URINE NEGATIVE (NEGATIVE); NITRATE,URINE NEGATIVE (NEGATIVE); OCCULT BLOOD,URINE NEGATIVE (NEGATIVE); PROTEIN,URINE NEGATIVE (NEGATIVE); SPECIFIC GRAVITIY, URINE 1.012 (1.003-1.030); UROBILINOGEN,URINE <=1.0 mg/dL (<=1.0)
[2024-06-12 11:46] LABS: ALCOHOL, URINE DRUG SCREEN NEGATIVE (NEGATIVE); AMPHET/METH SCREEN,URINE NEGATIVE (NEGATIVE); BARBITURATE SCREEN, URINE NEGATIVE (NEGATIVE); BENZODIAZEPINES SCREEN,URINE NEGATIVE (NEGATIVE); CANNABINOID SCREEN,URINE NEGATIVE (NEGATIVE); COCAINE SCREEN,URINE NEGATIVE (NEGATIVE); METHADONE SCREEN, URINE NEGATIVE (NEGATIVE); OPIATE SCREEN,URINE NEGATIVE (NEGATIVE); PHENCYCLIDINE SCREEN,URINE NEGATIVE (NEGATIVE)
[2024-06-12 12:24] VITALS: BP 104/50; PULSE 60; RESP 18; TEMP 97.6
[2024-06-12] MEDS: HydrOXYzine PAMOATE 25 MG CAPSULE PO PRN (16:23)
[2024-06-12] MEDS: HALOPERIDOL 5 MG TABLET PO PRN (16:23)
[2024-06-12 20:56] VITALS: BP 104/70; PULSE 68; RESP 18; TEMP 97.6
[2024-06-13 09:59] VITALS: BP 107/65; PULSE 78; RESP 18; TEMP 97.8
[2024-06-13 21:35] VITALS: BP 104/69; PULSE 75; RESP 18; TEMP 98
== END 2024-06-14 16:12 | disposition home or self-care (01) | DRG 753 ==
LOC: EMS 01:42 → 3EI 08:40
PROVIDERS: ADMIT Psychiatry & Neurology Child & Adolescent Psychiatry; ATTEND Psychiatry & Neurology Child & Adolescent Psychiatry
PROC: GZHZZZZ Group Psychotherapy (ICD-10-PCS; principal; 2024-06-11)
PROC: GZ56ZZZ Individual Psychotherapy, Supportive (ICD-10-PCS; 2024-06-11)
DX: F31.4 Bipolar disorder, current episode depressed, severe, without psychotic features (principal); R45.851 Suicidal ideations; Z20.822 Contact with and (suspected) exposure to COVID-19; E03.9 Hypothyroidism, unspecified; I10 Essential (primary) hypertension; D64.9 Anemia, unspecified; Z91.010 Allergy to peanuts; Z98.84 Bariatric surgery status
CPT/HCPCS: 80048; 80307; 81003; 85025; 99291